=== PATIENT | female | born 1980 | race Caucasian/White ===

== ENCOUNTER 2017-02-03 16:15 | Emergency (ER) | payer OTHER ==
[2017-02-03 16:29] VITALS: BP 112/82; PULSE 100; TEMP 97.5
--- NOTE | 2017-02-03 16:54 | ED ---
General Adult HPI - General Chief complaint: Extremity Problem,Nontraumatic Stated complaint: Shoulder Pain Time Seen by Provider: 02/03/17 16:33 Source: patient, RN notes reviewed Mode of arrival: ambulatory Limitations: no limitations - History of Present Illness Initial comments: Patient is a 36-year-old female who presents emergency room today with chief complaint of pain to the right shoulder. Patient does admit that she was working out a few days ago. Denies any specific injury or trauma. States she was on ibuprofen due to her menstrual cycle. She does admit that she noticed pain yesterday when she went to close a window at the house. She states she had increased pain to the right shoulder. Patient denies any other injury or trauma. She does admit that pain is worse with certain movements. She feels like something is "popping" in this area. Patient denies any other complaints. Patient denies any recent fever, chills, shortness of breath, chest pain, back pain, abdominal pain, nausea or vomiting, dysuria or hematuria, constipation or diarrhea, headaches or visual changes, or any other complaints. - Related Data Home Medications Medication Instructions Recorded Confirmed LORazepam [Ativan] 1 mg PO DAILY PRN 08/20/14 06/23/15 Venlafaxine HCl [Effexor XR] 75 mg PO HS 08/20/14 06/23/15 lamoTRIgine [LaMICtal] 25 mg PO HS 08/20/14 06/23/15 LORazepam [Ativan] 2 mg PO HS 06/23/15 06/23/15 Previous Rx's Medication Instructions Recorded HYDROcodone/APAP 5-325MG [[place] 1 - 2 each PO Q4HR PRN #90 tab 06/24/15 5-325] Allergies Allergy/AdvReac Type Severity Reaction Status Date / Time Sulfa (Sulfonamide Allergy Mild Itching Verified 02/03/17 16:29 Antibiotics) Review of Systems ROS Statement: Those systems with pertinent positive or pertinent negative responses have been documented in the HPI. ROS Other: All systems not noted in ROS Statement are negative. Past Medical History Past Medical History: Hypertension Additional Past Medical History / Comment(s): IBS, high heart rate, high white blood cell count, a mood disorder History of Any Multi-Drug Resistant Organisms: None Reported Past Surgical History: Uterine Ablation Past Anesthesia/Blood Transfusion Reactions: No Reported Reaction Past Psychological History: Anxiety, Depression Smoking Status: Current every day smoker Past Alcohol Use History: Occasional Past Drug Use History: None Reported - Past Family History Mother History Unknown: Yes Family Medical History: Cancer Additional Family Medical History / Comment(s): Breast Cancer General Exam - General Exam Comments Initial Comments: General: The patient is awake and alert, in no distress, and does not appear acutely ill. Neck: The neck is supple, there is no tenderness or JVD. Cardiovascular: There is a regular rate and rhythm. No murmur, rub or gallop is appreciated. Respiratory: Lungs are clear to auscultation, respirations are non-labored, breath sounds are equal. No wheezes, stridor, rales, or rhonchi. Musculoskeletal: Patient has normal appearance of the right shoulder no obvious deformity. She shows good range of motion both flexion, extension, abduction and abduction. Patient sensations are intact. Pulses equal bilaterally 2+. Mild tenderness anteriorly and posteriorly on exam. Strength is 5/5 in all directions. Neurological: A&O x 3. CN II-XII intact, There are no obvious motor or sensory deficits. Coordination appears grossly intact. Speech is normal. Skin: Skin is warm and dry and no rashes or lesions are noted. Psychiatric: Normal mood and affect. Limitations: no limitations Course Vital Signs 02/03/17 16:26 Temperature 97.5 F L Pulse Rate 100 Respiratory 20 Rate Blood Pressure 112/82 O2 Sat by Pulse 98 Oximetry Medical Decision Making - Medical Decision Making Options were discussed with patient about x-ray here the emergency room. She is declined. Strength is 5/5 all directions. Was discussed about the possibility of a rotator cuff injury versus labrum tear versus muscle strain. Patient is advised to follow-up with family doctor or orthopedics for further evaluation. Patient advised use anti-inflammatories for pain. Advised return for any other concerns. Disposition Clinical Impression: Shoulder injury Disposition: HOME SELF-CARE Condition: Good Instructions: Shoulder Sprain (ED), Rotator Cuff Injury (ED) Additional Instructions: Please use ibuprofen as discussed for pain. Please follow-up with the family doctor or orthopedics over the next 2-5 days. Please return to emergency room if any symptoms increase or worsen or for any other concerns. Referrals: Pippa Rosado DO [Primary Care Provider] - 1-2 days Eric Hester MD [STAFF PHYSICIAN] - 1-2 days Time of Disposition: 16:53
[2017-02-03 16:56] VITALS: RESP 16
== END 2017-02-03 17:00 | disposition home or self-care (01) ==
LOC: EC 16:15
DX: S49.91XA Unspecified injury of right shoulder and upper arm, initial encounter (principal); F17.200 Nicotine dependence, unspecified, uncomplicated; Z88.2 Allergy status to sulfonamides; X50.0XXA Overexertion from strenuous movement or load, initial encounter
CPT/HCPCS: 99283

== ENCOUNTER 2017-10-08 12:08 | Emergency (ER) | payer OTHER ==
[2017-10-08 12:21] VITALS: RESP 16
--- NOTE | 2017-10-08 12:32 | ED ---
Extremity Problem HPI - General Chief complaint: Extremity Problem,Nontraumatic Stated complaint: rt arm numbness Time Seen by Provider: 10/08/17 12:31 Source: patient Mode of arrival: ambulatory Limitations: no limitations - History of Present Illness Initial comments: Roseline is a 37 yo female who presents to the emergency department today for evaluation of 2 months of right upper extremity aching pain, numbness and swelling which has occurred intermittently. As well as evaluation of progressively worsening shortness of breath with exertion over the past couple of months as well. Patient reports that she has noticed for the past 2 months that she has what she describes as numbness and tingling in her right arm. She states that she cannot identify any movements or position that worsen the symptoms. She reports the symptoms occur intermittently and last for a varying amount of time. Patient reports that on a few occasions over the past couple of months she is also noted that her hand is very swollen. She reports that on Saturday she felt that her right hand was swollen and she describes it as being twice the size of her left hand. She states that she discussed these symptoms with one of her friends who is "a heart doctor "and he advised her to come to the hospital because she may have a blood clot in her arm. Patient reports that she was being stubborn and was busy so she didn't come to the hospital, however today she decided she had time to come to the hospital. Patient also states that she usually works out for approximately 30 minutes 3 times a week, she states that over the past 2 months she has noticed that she becomes more winded and short of breath when working out. She states that she will become short of breath just walking up the stairs. She also states that she has intermittent chest pain which she now states occurs with most any activity. She states the last injuries. Chest pain was on Saturday while she was walking up a flight of stairs. Has no history of blood clots, no known DVT or PE. She does report that her mother had DVTs and PEs however she is uncertain if she was ever tested for any clotting disorder. The patient is an every day smoker. Patient denies any persistent shortness of breath, she does not feel short of breath at rest. She is not expressing palpitations. Her chest pain occurs only with exertion. - Related Data Home Medications Medication Instructions Recorded Confirmed Venlafaxine HCl [Effexor XR] 75 mg PO HS 08/20/14 10/08/17 Aspirin 650 mg PO ONCE PRN 10/08/17 10/08/17 Ibuprofen [Motrin Ib] 600 mg PO ONCE PRN 10/08/17 10/08/17 LORazepam [Ativan] 0.5 mg PO HS 10/08/17 10/08/17 OXcarbazepine [Trileptal] 300 mg PO HS 10/08/17 10/08/17 Allergies Allergy/AdvReac Type Severity Reaction Status Date / Time Sulfa (Sulfonamide Allergy Mild Rash/Hives Verified 10/08/17 13:37 Antibiotics) Review of Systems ROS Statement: Those systems with pertinent positive or pertinent negative responses have been documented in the HPI. ROS Other: All systems not noted in ROS Statement are negative. Constitutional: Denies: fever, chills Eyes: Denies: eye pain ENT: Denies: throat pain Respiratory: Reports: dyspnea. Denies: cough, wheezes, hemoptysis, stridor Cardiovascular: Reports: chest pain, palpitations, dyspnea on exertion. Denies : orthopnea, edema, syncope, paroxysmal nocturnal dyspnea Endocrine: Denies: fatigue Gastrointestinal: Denies: abdominal pain, nausea, vomiting Genitourinary: Denies: urgency, dysuria Musculoskeletal: Reports: myalgia. Denies: back pain Skin: Denies: rash, lesions, change in color Neurological: Denies: headache, weakness Psychiatric: Denies: anxiety Hematological/Lymphatic: Denies: easy bleeding, easy bruising Past Medical History Past Medical History: Hypertension Additional Past Medical History / Comment(s): IBS, high heart rate, high white blood cell count, a mood disorder History of Any Multi-Drug Resistant Organisms: None Reported Past Surgical History: Uterine Ablation Past Anesthesia/Blood Transfusion Reactions: No Reported Reaction Past Psychological History: Anxiety, Depression Smoking Status: Current every day smoker Past Alcohol Use History: Occasional Past Drug Use History: None Reported - Past Family History Mother History Unknown: Yes Family Medical History: Cancer Additional Family Medical History / Comment(s): Breast Cancer General Exam Limitations: no limitations General appearance: alert, in no apparent distress Head exam: Present: atraumatic, normocephalic Eye exam: Present: normal appearance, PERRL ENT exam: Present: normal exam Neck exam: Present: normal inspection Respiratory exam: Present: normal lung sounds bilaterally. Absent: respiratory distress, wheezes, rales, rhonchi, stridor, chest wall tenderness, accessory muscle use, decreased breath sounds, prolonged expiratory Cardiovascular Exam: Present: regular rate, normal rhythm. Absent: bradycardia , tachycardia, irregular rhythm, systolic murmur, diastolic murmur GI/Abdominal exam: Present: soft. Absent: distended Rectal exam: Present: deferred Extremities exam: Present: normal inspection, full ROM, normal capillary refill. Absent: pedal edema, joint swelling Right General: Present: normal inspection. Absent: laceration, abrasion, nail injury (#), foreign body Shoulder Exam: Present: normal inspection, full ROM Upper Arm exam: Present: normal inspection. Absent: ecchymosis, deformity, erythema Elbow exam: Present: normal inspection, full ROM. Absent: tenderness, swelling Forearm Wrist exam: Present: normal inspection Hand Wrist exam: Present: normal inspection, full ROM. Absent: tenderness, swelling, laceration, erythema Neuro motor exam: Present: wrist extension intact, thumb opposition intact, thumb IP flexion intact, thumb adduction intact, fingers 2-5 abduction intact Neurosensory exam: Present: radial nerve intact, ulnar nerve intact, median nerve intact Vascular: Present: normal capillary refill. Absent: vascular compromise, Pallo , pulse deficit radial art, pulse deficit ulnar art, pulse deficit brachial art Neurological exam: Present: alert, oriented X3 Psychiatric exam: Present: agitated Skin exam: Present: warm, dry, normal color. Absent: rash, cyanosis, diaphoretic, erythema, urticaria, vesicles, petechiae, pallor, mottled, abrasion Course Vital Signs 10/08/17 10/08/17 12:17 14:59 Temperature 97.3 F L 97.4 F L Pulse Rate 90 74 Respiratory 16 16 Rate Blood Pressure 133/77 132/74 O2 Sat by Pulse 98 99 Oximetry Medical Decision Making - Medical Decision Making Patient was seen and evaluated, patient's initial chief complaint was intermittent tingling in her right arm however patient also complaining of exertional dyspnea and chest pain. Patient's right upper extremity within normal physical exam, and strong radial and ulnar pulses. Normal strength. She reports intermittent paresthesias swelling however not experiencing swelling today. Patient's discomfort in her upper extremity is exacerbated by abduction and compression. Advised patient that I suspect that her discomfort is secondary to nerve impingement and that she likely will need follow up with neurology for an EMG. Eyes that we will pursue a full cardiac workup as well as a d-dimer. Patient states that she was told by a heart doctor that she needs an ultrasound of her upper extremity for possible DVT. Advised her that at this time she has no physical exam findings that make me concerned for DVT, and addition I will be obtaining a d-dimer to evaluate for clotting if that is positive we can consider venous Dopplers. Labs are reviewed, troponin and d-dimer are both negative. Lab results were discussed with the patient, advised her that d-dimer was negative and there is no indication for CT pulmonary embolism or further vascular studies. Patient awaiting chest x-ray at this time. I again advised the patient that I suspect that her upper extremity discomfort is secondary to compression and that she needs follow-up with neurology. Chest x-ray with no acute findings. Results were discussed with the patient who is eager for discharge home she is arty removed her gown is is asking for discharge paperwork. I discussed with the patient that her exertional dyspnea may be related to her tobacco abuse and she would benefit from tobacco cessation. Patient's breast understanding of this. Patient was advised to follow-up with her primary care physician for reevaluation or return to the emergency department should she experience chest pain, shortness of breath or any new or concerning symptoms. - Lab Data Result diagrams: 10/08/17 13:07 10/08/17 13:07 Lab Results 10/08/17 10/08/17 10/08/17 Range/Units 13:07 13:07 13:07 WBC 13.9 H (3.8-10.6) k/uL RBC 4.56 (3.80-5.40) m/uL Hgb 12.9 (11.4-16.0) gm/dL Hct 39.0 (34.0-46.0) % MCV 85.6 (80.0-100.0) fL MCH 28.2 (25.0-35.0) pg MCHC 33.0 (31.0-37.0) g/dL RDW 13.8 (11.5-15.5) % Plt Count 354 (150-450) k/uL Neutrophils % 60 % Lymphocytes % 31 % Monocytes % 6 % Eosinophils % 1 % Basophils % 0 % Neutrophils # 8.4 H (1.3-7.7) k/uL Lymphocytes # 4.3 (1.0-4.8) k/uL Monocytes # 0.8 (0-1.0) k/uL Eosinophils # 0.2 (0-0.7) k/uL Basophils # 0.1 (0-0.2) k/uL PT 9.4 (9.0-12.0) sec INR 0.9 (<1.2) APTT 23.5 (22.0-30.0) sec D-Dimer 0.42 (<0.60) mg/L FEU Sodium 141 (137-145) mmol/L Potassium 4.3 (3.5-5.1) mmol/L Chloride 103 (98-107) mmol/L Carbon Dioxide 28 (22-30) mmol/L Anion Gap 10 mmol/L BUN 9 (7-17) mg/dL Creatinine 0.70 (0.52-1.04) mg/dL Est GFR (CKD-EPI)AfAm >90 (>60 ml/min/1.73 sqM) Est GFR (CKD-EPI)NonAf >90 (>60 ml/min/1.73 sqM) Glucose 72 L (74-99) mg/dL Calcium 10.2 (8.4-10.2) mg/dL Troponin I (0.000-0.034) ng/mL NT-Pro-B Natriuret Pep pg/mL Urine Color Urine Appearance (Clear) Urine pH (5.0-8.0) Ur Specific [place] (1.001-1.035) Urine Protein (Negative) Urine Glucose (UA) (Negative) Urine Ketones (Negative) Urine Blood (Negative) Urine Nitrite (Negative) Urine Bilirubin (Negative) Urine Urobilinogen (<2.0) mg/dL Ur Leukocyte Esterase (Negative) Urine RBC (0-5) /hpf Urine WBC (0-5) /hpf Urine Bacteria (None) /hpf Urine Mucus (None) /hpf Urine HCG, Qual (Not Detectd) 10/08/17 10/08/17 10/08/17 Range/Units 13:07 13:07 13:07 WBC (3.8-10.6) k/uL RBC (3.80-5.40) m/uL Hgb (11.4-16.0) gm/dL Hct (34.0-46.0) % MCV (80.0-100.0) fL MCH (25.0-35.0) pg MCHC (31.0-37.0) g/dL RDW (11.5-15.5) % Plt Count (150-450) k/uL Neutrophils % % Lymphocytes % % Monocytes % % Eosinophils % % Basophils % % Neutrophils # (1.3-7.7) k/uL Lymphocytes # (1.0-4.8) k/uL Monocytes # (0-1.0) k/uL Eosinophils # (0-0.7) k/uL Basophils # (0-0.2) k/uL PT (9.0-12.0) sec INR (<1.2) APTT (22.0-30.0) sec D-Dimer (<0.60) mg/L FEU Sodium (137-145) mmol/L Potassium (3.5-5.1) mmol/L Chloride (98-107) mmol/L Carbon Dioxide (22-30) mmol/L Anion Gap mmol/L BUN (7-17) mg/dL Creatinine (0.52-1.04) mg/dL Est GFR (CKD-EPI)AfAm (>60 ml/min/1.73 sqM) Est GFR (CKD-EPI)NonAf (>60 ml/min/1.73 sqM) Glucose (74-99) mg/dL Calcium (8.4-10.2) mg/dL Troponin I <0.012 (0.000-0.034) ng/mL NT-Pro-B Natriuret Pep 49 pg/mL Urine Color Urine Appearance (Clear) Urine pH (5.0-8.0) Ur Specific [place] (1.001-1.035) Urine Protein (Negative) Urine Glucose (UA) (Negative) Urine Ketones (Negative) Urine Blood (Negative) Urine Nitrite (Negative) Urine Bilirubin (Negative) Urine Urobilinogen (<2.0) mg/dL Ur Leukocyte Esterase (Negative) Urine RBC (0-5) /hpf Urine WBC (0-5) /hpf Urine Bacteria (None) /hpf Urine Mucus (None) /hpf Urine HCG, Qual Not Detected (Not Detectd) 04/03/18 Range/Units 13:07 WBC (3.8-10.6) k/uL RBC (3.80-5.40) m/uL Hgb (11.4-16.0) gm/dL Hct (34.0-46.0) % MCV (80.0-100.0) fL MCH (25.0-35.0) pg MCHC (31.0-37.0) g/dL RDW (11.5-15.5) % Plt Count (150-450) k/uL Neutrophils % % Lymphocytes % % Monocytes % % Eosinophils % % Basophils % % Neutrophils # (1.3-7.7) k/uL Lymphocytes # (1.0-4.8) k/uL Monocytes # (0-1.0) k/uL Eosinophils # (0-0.7) k/uL Basophils # (0-0.2) k/uL PT (9.0-12.0) sec INR (<1.2) APTT (22.0-30.0) sec D-Dimer (<0.60) mg/L FEU Sodium (137-145) mmol/L Potassium (3.5-5.1) mmol/L Chloride (98-107) mmol/L Carbon Dioxide (22-30) mmol/L Anion Gap mmol/L BUN (7-17) mg/dL Creatinine (0.52-1.04) mg/dL Est GFR (CKD-EPI)AfAm (>60 ml/min/1.73 sqM) Est GFR (CKD-EPI)NonAf (>60 ml/min/1.73 sqM) Glucose (74-99) mg/dL Calcium (8.4-10.2) mg/dL Troponin I (0.000-0.034) ng/mL NT-Pro-B Natriuret Pep pg/mL Urine Color Red Urine Appearance Clear (Clear) Urine pH 7.0 (5.0-8.0) Ur Specific [place] 1.006 (1.001-1.035) Urine Protein 2+ H (Negative) Urine Glucose (UA) Negative (Negative) Urine Ketones Negative (Negative) Urine Blood Large H (Negative) Urine Nitrite Negative (Negative) Urine Bilirubin Negative (Negative) Urine Urobilinogen <2.0 (<2.0) mg/dL Ur Leukocyte Esterase Moderate H (Negative) Urine RBC >182 H (0-5) /hpf Urine WBC 81 H (0-5) /hpf Urine Bacteria Rare H (None) /hpf Urine Mucus Rare H (None) /hpf Urine HCG, Qual (Not Detectd) Disposition Clinical Impression: Paresthesia of right arm, Shortness of breath, Tobacco abuse Disposition: HOME SELF-CARE Condition: Good Instructions: How to Stop Smoking (ED), Paresthesia (ED) Referrals: Pippa Rosado DO [Primary Care Provider] - 1-2 days Yanci Gimenez MD [STAFF PHYSICIAN] - 1-2 days Time of Disposition: 14:44
[2017-10-08 13:21] LABS: Basophils # (A) 0.1 k/uL (0-0.2); Basophils % (A) 0 %; Eosinophils # (A) 0.2 k/uL (0-0.7); Eosinophils % (A) 1 %; HGB 12.9 gm/dL (11.4-16.0); Lymphocytes # (A) 4.3 k/uL (1.0-4.8); Lymphocytes % (A) 31 %; MCH 28.2 pg (25.0-35.0); MCV 85.6 fL (80.0-100.0); Mean Platelet Volume 6.5; Monocytes # (A) 0.8 k/uL (0-1.0); Monocytes % (A) 6 %; Neutrophils # (A) 8.4 k/uL (1.3-7.7); Neutrophils % (A) 60 %; Platelet Count 354 k/uL (150-450); RBC 4.56 m/uL (3.80-5.40); RDW 13.8 % (11.5-15.5); WBC 13.9 k/uL (3.8-10.6)
[2017-10-08 13:32] LABS: Anion Gap 10 mmol/L; Blood Urea Nitrogen 9 mg/dL (7-17); Calcium 10.2 mg/dL (8.4-10.2); Carbon Dioxide 28 mmol/L (22-30); Chloride 103 mmol/L (98-107); Glucose 72 mg/dL (74-99); Potassium 4.3 mmol/L (3.5-5.1); Sodium 141 mmol/L (137-145)
[2017-10-08 13:38] LABS: Appearance,Urine Clear (Clear); Bacteria,Urine Rare /hpf; Bilirubin,Urine Negative (Negative); Blood,Urine Large (Negative); Color,Urine Red; Glucose,Urine (UA) Negative (Negative); Ketones,Urine Negative (Negative); Leukocyte Esterase,Urine Moderate (Negative); Mucus,Urine Rare /hpf; Nitrite,Urine Negative (Negative); Protein,Urine 2+ (Negative); RBC,Urine >182 /hpf (0-5); Specific Gravity,Urine 1.006 (1.001-1.035); Urobilinogen,Urine <2.0 mg/dL (<2.0); WBC,Urine 81 /hpf (0-5)
[2017-10-08 13:39] LABS: D-Dimer 0.42 mg/L FEU (<0.60); INR 0.9 (<1.2); Partial Thromboplastin Time 23.5 sec (22.0-30.0); Prothrombin Time 9.4 sec (9.0-12.0)
--- NOTE | 2017-10-08 14:33 | XR ---
EXAMINATION TYPE: XR chest 1V DATE OF EXAM: 10/08/2017 COMPARISON: NONE HISTORY: Shortness of breath TECHNIQUE: Single frontal view of the chest is obtained. FINDINGS: There is no focal air space opacity, pleural effusion, or pneumothorax seen. The cardiac silhouette size is within normal limits. The osseous structures are intact. Positioning results in a somewhat apical lordotic view. No overt failure. IMPRESSION: No acute process.
[2017-10-08 15:00] VITALS: BP 132/74; PULSE 74; TEMP 97.4
== END 2017-10-08 15:09 | disposition home or self-care (01) ==
LOC: EC 12:08
DX: R20.2 Paresthesia of skin (principal); R06.02 Shortness of breath; I10 Essential (primary) hypertension; F32.9 Major depressive disorder, single episode, unspecified; F41.9 Anxiety disorder, unspecified; F17.200 Nicotine dependence, unspecified, uncomplicated; Z88.2 Allergy status to sulfonamides; Z79.899 Other long term (current) drug therapy
CPT/HCPCS: 36415; 71045; 80048; 81001; 81025; 83880; 84484; 85025; 85379; 85610; 85730; 93005; 99284

== ENCOUNTER → 2018-01-20 | Outpatient (CLI) | payer OTHER ==
--- NOTE | 2018-01-20 10:36 | US ---
EXAMINATION TYPE: US abdomen complete DATE OF EXAM: 01/20/2018 COMPARISON: None CLINICAL HISTORY: 37-year-old female R16.1 SPLENOMEGALY. High WBC, diarrhea and intermittent left fla nk pain x 1 year TECHNIQUE: Multiple sonographic images of the abdomen are obtained. FINDINGS: EXAM MEASUREMENTS: Liver Length: 14.8 cm Gallbladder Wall: 0.2 cm CBD: 0.3 cm Spleen: 9.1 cm Right Kidney: 9.8 x 4.7 x 4.5 cm Left Kidney: 10.6 x 5.3 x 4.5 cm Pancreas: visualized portions wnl, limited by overlying midline bowel gas Liver: wnl Gallbladder: 0.3cm hyperechoic non shadowing focus along posterior wall Evidence for sonographic Nice's sign: no CBD: visualized portions wnl Spleen: wnl Right Kidney: wnl Left Kidney: wnl Upper IVC: wnl Abd Aorta: visualized portions wnl, limited by overlying midline bowel gas IMPRESSION: 1. Either a 3 mm nonshadowing gallbladder calculus or a tiny incidental 3 mm gallbladder wall polyp. 2. Otherwise, no specific abnormality seen. Spleen is normal size.
== END | disposition home or self-care (01) ==
LOC: RADUSWWP 08:22
PROVIDERS: ATTEND Internal Medicine Hematology & Oncology
DX: R16.1 Splenomegaly, not elsewhere classified (principal); Z88.2 Allergy status to sulfonamides
CPT/HCPCS: 76700

== ENCOUNTER → 2019-07-22 | Outpatient (CLI) | payer OTHER ==
--- NOTE | 2019-07-23 14:08 | MM ---
Reason for exam: screening (asymptomatic). Last mammogram was performed 9 years and 1 month ago. History: Family history of breast cancer in sister at age 56 and breast cancer in mother at age 70. Took hormonal contraceptives for 5 years. Physical Findings: A clinical breast exam by your physician is recommended on an annual basis and results should be correlated with mammographic findings. MG 3D Screening Mammo W/Cad Bilateral CC and MLO view(s) were taken. Prior study comparison: June 09, 2010, bilateral diagnostic digital mammog. The breast tissue is heterogeneously dense. This may lower the sensitivity of mammography. No suspicious abnormality in the left breast. 7mm right lateral asymmetry 6.5-7.0cm from nipple. ASSESSMENT: Incomplete: need additional imaging evaluation, BI-RAD 0 RECOMMENDATION: Special view mammogram of the right breast. If lesion persists on supplemental views, image directed ultrasound is recommended. [facility] will attempt to contact patient to return for supplemental views and ultrasound if indicated.
== END | disposition home or self-care (01) ==
LOC: RADMAMWWP 09:41
PROVIDERS: ATTEND Family Medicine
DX: Z12.31 Encounter for screening mammogram for malignant neoplasm of breast (principal); Z80.3 Family history of malignant neoplasm of breast
CPT/HCPCS: 77063; 77067

== ENCOUNTER → 2019-08-04 | Outpatient (CLI) | payer OTHER ==
--- NOTE | 2019-08-04 11:43 | MM ---
Reason for exam: additional evaluation requested from abnormal screening. Last mammogram was performed less than 1 month ago. History: Family history of breast cancer in sister at age 56 and breast cancer in mother at age 67. Took hormonal contraceptives for 5 years. Physical Findings: Nurse did not find any significant physical abnormalities on exam. MG 3D Work Up W/Cad RT Spot compression CC and LM view(s) were taken of the right breast. Prior study comparison: July 22, 2019, bilateral MG 3d screening mammo w/cad. June 09, 2010, bilateral diagnostic digital mammog. The breast tissue is heterogeneously dense. This may lower the sensitivity of mammography. Right upper outer quadrant focal asymmetry 6.5cm from nipple measures 6mm and improves but does not resolve on additional views. These results were verbally communicated with the patient and result sheet given to the patient on 08/04/19. ASSESSMENT: Incomplete: need additional imaging evaluation, BI-RAD 0 RECOMMENDATION: Ultrasound of the right breast. (upper outer quadrant)
--- NOTE | 2019-08-04 11:46 | USB ---
Reason for exam: additional evaluation requested from abnormal screening. History: Family history of breast cancer in sister at age 56 and breast cancer in mother at age 67. Took hormonal contraceptives for 5 years. US Breast Workup Limited RT Right limited breast ultrasound including focal area of concern, retroareolar and axilla demonstrates a 0.5 x 0.5 x 0.5cm hypoechoic lesion at 9 o'clock and a 0.9 x 0.6 x 1.0cm hypoechoic lesion at 10 o'clock, correlates with mammogram. These results were verbally communicated with the patient and result sheet given to the patient on 08/04/19. ASSESSMENT: Suspicious, BI-RAD 4 RECOMMENDATION: Ultrasound core biopsy of the right breast. (x 2) Called Dr. Rosado's office with mammographic findings and has scheduled an appointment for the patient for 08/21/19 at 9:[address] Bowden. Biopsy scheduled for 08/21/19 at 11:30. PRELIMINARY REPORT CALLED AND FAXED TO DR. BOWDEN ON 08/04/19.
== END ==
LOC: RADMAMWWP 09:07
PROVIDERS: ATTEND Family Medicine
DX: R92.8 Other abnormal and inconclusive findings on diagnostic imaging of breast (principal)
CPT/HCPCS: 77061; 77065

== ENCOUNTER → 2019-08-21 | Day surgery (SDC) | payer OTHER ==
[2019-08-21 12:39] VITALS: RESP 18; TEMP 98
--- NOTE | 2019-08-21 13:52 | USB ---
EXAMINATION TYPE: US biopsy breast add'l VAD RT, US biopsy breast VAD RT, MG diagnostic mammo RT wo CAD DATE OF EXAM: 08/21/2019 CLINICAL HISTORY: R92.8, ABN MAMM. TECHNIQUE: 2 site ultrasound guided core biopsy of right breast. COMPARISON: Right breast ultrasound dated 08/04/2019 FINDINGS: The procedure of ultrasound guided core biopsy was explained to the patient. Benefits, alternatives, and risks were discussed. An informed consent was then obtained. Preprocedural timeout was performed. Site A: The patient was placed in supine positioning for imaging and for the procedure. The overlying skin was prepped and draped in usual sterile fashion. 10 cc of 1% lidocaine was used as anesthetic into the skin and subcutaneous tissue up to a 1.0 cm mass at the 10:00 position in the right breast. Under ultrasound guidance, a 12-gauge vacuum assisted biopsy gun device was used to obtain 5 core samples. Following this, a coil-shaped biopsy marker was left in the mass. Site B: The patient was placed in supine positioning for imaging and for the procedure. The overlying skin was prepped and draped in usual sterile fashion. 10 cc of 1% lidocaine was used as anesthetic into the skin and subcutaneous tissue up to a 0.5 cm mass at the 9:00 position in the right breast. Under ultrasound guidance, a 12-gauge vacuum assisted biopsy gun device was used to obtain 3 core samples. Following this, a a ribbon-shaped biopsy marker was left in the mass. Postprocedural mammogram demonstrates appropriate biopsy marker placement. The patient tolerated the procedure well without any immediate complication. The patient was kept in the radiology department for short stay after the procedure and then discharged home in stable condition. IMPRESSION: Successful, uncomplicated 2 site ultrasound guided core biopsy of right breast masses at the 10:00 and 9:00 positions, full pathology results to follow. Pathology Results: Benign A. RIGHT BREAST, 10:00, ULTRASOUND GUIDED CORE BIOPSY: Fibroadenoma. B. RIGHT BREAST, 9:00, ULTRASOUND GUIDED CORE BIOPSY: Fibroadenoma. Background proliferative fibrocystic changes including nodular adenosis with calcifications. Recommendation Follow up mammogram of the right breast in 6 months. [facility]
[2019-08-21 21:06] VITALS: BP 117/60; PULSE 70
== END ==
LOC: RADUSWWP 11:33
PROVIDERS: ATTEND Surgery
DX: D24.1 Benign neoplasm of right breast (principal); N60.11 Diffuse cystic mastopathy of right breast; N60.21 Fibroadenosis of right breast
CPT/HCPCS: 88305; 77065; 19083; 19084; A4648; J2001

== ENCOUNTER → 2019-08-21 | Outpatient (CLI) | payer OTHER ==
[2019-08-21 09:14] VITALS: BP 116/81; PULSE 106; RESP 18; TEMP 97.6
--- NOTE | 2019-08-21 09:52 | P.GSHP ---
History of Present Illness H&P Date: 08/21/19 Chief Complaint: abnormal mammogram right breast Roseline is a 38-year-old white female who presents for breast evaluation. She is seen in consultation for Dr. Cortes. [place] [address] on this film in the right breast she was noted to have a 7 mm lateral asymmetry approximately 7 cm from the nipple. This resulted in additional views being performed on 12 820. This revealed a persistent right upper outer quadrant focal asymmetry 6.5 cm from the nipple. An ultrasound was performed in an ultrasound to lesions were noted in 0.5 cm lesion at 9:00 and is 0.9 cm lesion at 10:00 correlating with a mammographic change. The patient herself states t hat she has felt some increased nodularity in the right breast for at least 2 years. She states that she also has discomfort with this area of nodularity in the area of nodularity has increased in size. Of importance is the fact that her sister 57 was recently diagnosed with breast cancer. Her mother in 2008 of breast cancer at the age of 70. The pain in her breast does not spread anywhere, she also has pain in the right axilla. The area of nodularity and pain was worse right before her periods, but now the pain is continuous. Family History: sister: invasive lobular carcinoma mother: cancer ? type from this maternal aunt: breast cancer Hormonal history: menarche: 12 , 1 [place], first born at 15, brest fed: no periods regular BCP: 2 years hormones: none Past Surgical History: 1. uterine ablation 2. colonoscopy; IBS, colitis, diverticulitis Medical History: 1. Tachycardia 2. High white blood cell count questionable etiology Social History: smoke: 1/2 PPD/22 years alcohol: none, stopped 3 years ago drugs: none - Constitutional Constitutional: Reports sweats - EENT Comment: wears contacts Eyes: denies blurred vision, denies pain Ears: right: decreased hearing (right ear pain for 6 months), deny: tinnitus Ears, nose, mouth and throat: Reports sore throat - Breasts Comment: no nipple discharge or skin changes Breasts: bilateral: as per HPI - Cardiovascular Comment: tachycardia chest pain - Respiratory Comment: smoker - Gastrointestinal Comment: Irritable bowel syndrome, diverticulitis - Genitourinary (Female) Genitourinary: Denies dysuria, Denies hematuria - Menstruation Menstruation: Reports period normal - Musculoskeletal Musculoskeletal: Denies myalgias - Integumentary Comment: rash on back Integumentary: Reports rash - Neurological Neurological: Reports numbness, Denies weakness - Psychiatric Psychiatric: Denies anxiety, Denies depression - Endocrine Endocrine: Reports fatigue, Reports weight change - Hematologic/Lymphatic Comment: none, motrin as needed has not taken for a week - Allergic/Immunologic Allergic/Immunologic: Reports as per HPI Past Medical History Past Medical History: Hypertension Additional Past Medical History / Comment(s): IBS, high heart rate, high white blood cell count, diverticulitis History of Any Multi-Drug Resistant Organisms: None Reported Past Surgical History: Uterine Ablation Past Anesthesia/Blood Transfusion Reactions: No Reported Reaction Past Psychological History: Anxiety, Depression Smoking Status: Current every day smoker Past Alcohol Use History: None Reported Past Drug Use History: None Reported - Past Family History Mother History Unknown: Yes Family Medical History: Cancer Additional Family Medical History / Comment(s): Breast Cancer Medications and Allergies Home Medications Medication Instructions Recorded Confirmed Type Venlafaxine HCl [Effexor XR] 75 mg PO HS 08/20/14 08/12/19 History Ibuprofen [Motrin Ib] 600 mg PO ONCE PRN 10/08/17 08/12/19 History LORazepam [Ativan] 0.5 mg PO HS 10/08/17 08/12/19 History Allergies Allergy/AdvReac Type Severity Reaction Status Date / Time Sulfa (Sulfonamide Allergy Mild Rash/Hives Verified 08/21/19 09:14 Antibiotics) Surgical - Exam Vital Signs Temp Pulse Resp BP Pulse Ox 97.6 F 106 H 18 116/81 100 08/21/19 09:06 08/21/19 09:06 08/21/19 09:06 08/21/19 09:06 08/21/19 09:06 BMI 27.3 - General well developed, well nourished, no distress - Eyes normal ocular movement - ENT no hearing loss, no congestion - Neck trachea midline - Respiratory normal expansion, normal respiratory effort, clear to auscultation - Cardiovascular Rhythm: regular Heart Sounds: normal: S1, S2 - Abdomen Abdomen: soft, non tender, no guarding, no rigid, no rebound - Integumentary normal turgor - Neurologic no disoriented, no combative - Musculoskeletal normal gait, normal posture - Psychiatric oriented to time, oriented to person, oriented to place, speech is normal, memory intact breast exam: BRA 36B, ptosis grade 1 inspection: no skin changes of concern, no nipple inversion Palpation: Right breast: Multi-positional exam fibrocystic changes, increased fullness 12:00 as well as 9 and 10 o'clock position 9 and 10 o'clock position correlated with radiographic changes Right axilla: Tender with no adenopathy of concern Left breast: Multi-positional exam fibrocystic changes Left axilla: No adenopathy of concern Results Mammogram and ultrasound reviewed with radiologist Dr. Parker Assessment and Plan Assessment: Impression: 1. Abnormal mammogram/ultrasound right breast from July 2019 2. Palpable change right breast at 12:00 as well as 9 and 10:00/that at 12:00 does not seem to correspond radiographic abnormality 3. Fibrocystic breast changes 4. Tachycardia of unexplained etiology 5. Leukocytosis of unexplained etiology Plan: 1. Ultrasound core biopsy of 9 and 10 o'clock position right breast 2. Ultrasound reevaluation 12:00 area of the right breast 3. CBC 4. Follow up after ultrasound biopsy done Risk and benefits of ultrasound core biopsy discussed patient understands and wishes to proceed CC: Dr. Murillo encounter 45 minutes > > 50% of time in planning and counselling Time with Patient: Greater than 30
[2019-08-21 11:12] LABS: HCT 40.9 % (34.0-46.0); HGB 13.5 gm/dL (11.4-16.0); MCH 29.2 pg (25.0-35.0); MCHC 32.9 g/dL (31.0-37.0); MCV 88.7 fL (80.0-100.0); Mean Platelet Volume 6.7; Platelet Count 358 k/uL (150-450); RBC 4.61 m/uL (3.80-5.40); RDW 13.7 % (11.5-15.5); WBC 14.2 k/uL (3.8-10.6)
== END ==
LOC: WWCWWP 08:57
PROVIDERS: ATTEND Surgery
DX: D72.829 Elevated white blood cell count, unspecified (principal)
CPT/HCPCS: 36415; 85027

== ENCOUNTER 2019-09-09 21:16 | Emergency (ER) | payer OTHER ==
[2019-09-09] MEDS ORDERED: MORPHINE SULFATE 4 MG/ML SYRINGE IVP STA (21:39)
[2019-09-09] MEDS ORDERED: ONDANSETRON 4 MG/2 ML VIAL IVP STA (21:42)
[2019-09-09] MEDS ORDERED: MORPHINE SULFATE 4 MG/ML SYRINGE IV STA (21:42)
[2019-09-09] MEDS ORDERED: SODIUM CHLORIDE 0.9% 1,000 ML IV STA ×2 (21:42→23:02)
[2019-09-09] MEDS ORDERED: PANTOPRAZOLE 40 MG/10 ML VIAL IVP STA (21:42)
--- NOTE | 2019-09-09 22:04 | ED ---
Abdominal Pain HPI - General Chief Complaint: Abdominal Pain Stated Complaint: Abd Pain Time Seen by Provider: 09/09/19 21:26 Source: patient, RN notes reviewed, old records reviewed Mode of arrival: ambulatory Limitations: no limitations - History of Present Illness Initial Comments: This is a 38-year-old female DF for evaluation of abdominal pain patient states she has history of diverticulitis with prior colonoscopy as well as maybe history of irritable bowel syndrome or disease. She takes no daily medications denies any fevers mild nausea no vomiting symptoms started today while at work she was not doing anything specific no recent change in diet or appetite. No blood in her vomit no blood in her stools usually has the loose stools she's a ctually felt maybe a little constipated lately MD Complaint: abdominal pain -: hour(s) Location: LUQ Radiation: LUQ Migration to: LUQ Severity: severe Severity scale (1-10): 10 Quality: stabbing, aching Consistency: constant Improves With: nothing Worsens With: nothing Associated Symptoms: nausea - Related Data Home Medications Medication Instructions Recorded Confirmed Venlafaxine HCl [Effexor XR] 75 mg PO HS 08/20/14 08/27/19 Ibuprofen [Motrin Ib] 600 mg PO ONCE PRN 10/08/17 08/27/19 LORazepam [Ativan] 0.5 mg PO HS 10/08/17 08/27/19 Allergies Allergy/AdvReac Type Severity Reaction Status Date / Time Sulfa (Sulfonamide Allergy Mild Rash/Hives Verified 08/27/19 10:20 Antibiotics) Review of Systems ROS Statement: Those systems with pertinent positive or pertinent negative responses have been documented in the HPI. ROS Other: All systems not noted in ROS Statement are negative. Past Medical History Past Medical History: Hypertension Additional Past Medical History / Comment(s): IBS, high heart rate, high white blood cell count, diverticulitis History of Any Multi-Drug Resistant Organisms: None Reported Past Surgical History: Uterine Ablation Past Anesthesia/Blood Transfusion Reactions: No Reported Reaction Past Psychological History: Anxiety, Depression Smoking Status: Current every day smoker Past Alcohol Use History: None Reported Past Drug Use History: None Reported - Past Family History Mother History Unknown: Yes Family Medical History: Cancer Additional Family Medical History / Comment(s): Breast Cancer General Exam Limitations: no limitations General appearance: alert, in no apparent distress Head exam: Present: atraumatic, normocephalic, normal inspection Eye exam: Present: normal appearance, PERRL, EOMI. Absent: scleral icterus, conjunctival injection, periorbital swelling ENT exam: Present: normal exam, mucous membranes moist Neck exam: Present: normal inspection. Absent: tenderness, meningismus, lymphadenopathy Respiratory exam: Present: normal lung sounds bilaterally. Absent: respiratory distress, wheezes, rales, rhonchi, stridor Cardiovascular Exam: Present: normal rhythm, tachycardia, normal heart sounds. Absent: systolic murmur, diastolic murmur, rubs, gallop, clicks GI/Abdominal exam: Present: soft, normal bowel sounds. Absent: distended, tenderness, guarding, rebound, rigid Extremities exam: Present: normal inspection, full ROM, normal capillary refill. Absent: tenderness, pedal edema, joint swelling, calf tenderness Back exam: Present: normal inspection Neurological exam: Present: alert, oriented X3, CN II-XII intact Psychiatric exam: Present: normal affect, normal mood Skin exam: Present: warm, dry, intact, normal color. Absent: rash Course Vital Signs 09/09/19 21:18 Temperature 98.1 F Pulse Rate 110 H Respiratory 20 Rate Blood Pressure 126/81 - Reevaluation(s) Reevaluation #1: 09/10/19 00:08 Medical records reviewed Reevaluation #2: 09/10/19 00:08 Patient is requesting strong shoulder pain medications by name Reevaluation #3: 09/10/19 00:08 Patient has pain control and reevaluation no abdominal tenderness Reevaluation #4: 09/10/19 00:08 Spoke patient regarding findings and results questions answered, patient's okay for discharge Medical Decision Making - Medical Decision Making 38 female nonspecific abdominal pain CT labwork otherwise negative lipase mildly elevated secondary to nausea and retching. Patient can be discharged home - Lab Data Result diagrams: 09/09/19 21:57 09/09/19 21:57 Lab Results 09/09/19 09/09/19 09/09/19 Range/Units 21:57 21:57 21:57 WBC 16.7 H (3.8-10.6) k/uL RBC 4.66 (3.80-5.40) m/uL Hgb 13.3 (11.4-16.0) gm/dL Hct 40.9 (34.0-46.0) % MCV 87.8 (80.0-100.0) fL MCH 28.5 (25.0-35.0) pg MCHC 32.5 (31.0-37.0) g/dL RDW 13.5 (11.5-15.5) % Plt Count 402 (150-450) k/uL Neutrophils % 65 % Lymphocytes % 25 % Monocytes % 6 % Eosinophils % 2 % Basophils % 0 % Neutrophils # 10.9 H (1.3-7.7) k/uL Lymphocytes # 4.1 (1.0-4.8) k/uL Monocytes # 1.0 (0-1.0) k/uL Eosinophils # 0.2 (0-0.7) k/uL Basophils # 0.1 (0-0.2) k/uL Sodium 136 L (137-145) mmol/L Potassium 4.5 (3.5-5.1) mmol/L Chloride 105 (98-107) mmol/L Carbon Dioxide 21 L (22-30) mmol/L Anion Gap 10 mmol/L BUN 13 (7-17) mg/dL Creatinine 0.87 (0.52-1.04) mg/dL Est GFR (CKD-EPI)AfAm >90 (>60 ml/min/1.73 sqM) Est GFR (CKD-EPI)NonAf 84 (>60 ml/min/1.73 sqM) Glucose 96 (74-99) mg/dL Plasma Lactic Acid [place] (0.7-2.0) mmol/L Calcium 10.0 (8.4-10.2) mg/dL Total Bilirubin <0.1 L (0.2-1.3) mg/dL AST 21 (14-36) U/L ALT 19 (4-34) U/L Alkaline Phosphatase 70 (38-126) U/L Total Protein 7.1 (6.3-8.2) g/dL Albumin 4.4 (3.5-5.0) g/dL Amylase 71 (30-110) U/L Lipase 370 H (23-300) U/L Urine Color Yellow Urine Appearance Cloudy H (Clear) Urine pH 5.5 (5.0-8.0) Ur Specific [place] 1.021 (1.001-1.035) Urine Protein Negative (Negative) Urine Glucose (UA) Negative (Negative) Urine Ketones Negative (Negative) Urine Blood Negative (Negative) Urine Nitrite Negative (Negative) Urine Bilirubin Negative (Negative) Urine Urobilinogen <2.0 (<2.0) mg/dL Ur Leukocyte Esterase Moderate H (Negative) Urine RBC 5 (0-5) /hpf Urine WBC 7 H (0-5) /hpf Ur Squamous Epith Cells 8 H (0-4) /hpf Urine Bacteria Rare H (None) /hpf Urine Mucus Rare H (None) /hpf 09/09/19 Range/Units 21:57 WBC (3.8-10.6) k/uL RBC (3.80-5.40) m/uL Hgb (11.4-16.0) gm/dL Hct (34.0-46.0) % MCV (80.0-100.0) fL MCH (25.0-35.0) pg MCHC (31.0-37.0) g/dL RDW (11.5-15.5) % Plt Count (150-450) k/uL Neutrophils % % Lymphocytes % % Monocytes % % Eosinophils % % Basophils % % Neutrophils # (1.3-7.7) k/uL Lymphocytes # (1.0-4.8) k/uL Monocytes # (0-1.0) k/uL Eosinophils # (0-0.7) k/uL Basophils # (0-0.2) k/uL Sodium (137-145) mmol/L Potassium (3.5-5.1) mmol/L Chloride (98-107) mmol/L Carbon Dioxide (22-30) mmol/L Anion Gap mmol/L BUN (7-17) mg/dL Creatinine (0.52-1.04) mg/dL Est GFR (CKD-EPI)AfAm (>60 ml/min/1.73 sqM) Est GFR (CKD-EPI)NonAf (>60 ml/min/1.73 sqM) Glucose (74-99) mg/dL Plasma Lactic Acid [place] 1.6 (0.7-2.0) mmol/L Calcium (8.4-10.2) mg/dL Total Bilirubin (0.2-1.3) mg/dL AST (14-36) U/L ALT (4-34) U/L Alkaline Phosphatase (38-126) U/L Total Protein (6.3-8.2) g/dL Albumin (3.5-5.0) g/dL Amylase (30-110) U/L Lipase (23-300) U/L Urine Color Urine Appearance (Clear) Urine pH (5.0-8.0) Ur Specific [place] (1.001-1.035) Urine Protein (Negative) Urine Glucose (UA) (Negative) Urine Ketones (Negative) Urine Blood (Negative) Urine Nitrite (Negative) Urine Bilirubin (Negative) Urine Urobilinogen (<2.0) mg/dL Ur Leukocyte Esterase (Negative) Urine RBC (0-5) /hpf Urine WBC (0-5) /hpf Ur Squamous Epith Cells (0-4) /hpf Urine Bacteria (None) /hpf Urine Mucus (None) /hpf - Radiology Data Radiology results: report reviewed (US of GALLBLADDER CT OF abd and pelvis NE GATIVE FOR ACUTE disease), image reviewed Disposition Clinical Impression: Abdominal pain, Pancreatitis Disposition: HOME SELF-CARE Condition: Good Instructions (If sedation given, give patient instructions): Abdominal Pain (ED) Is patient prescribed a controlled substance at d/c from ED?: No Referrals: Don Nuñez Jr, DO [Primary Care Provider] - 1-2 days
--- NOTE | 2019-09-09 22:33 | CT ---
EXAMINATION TYPE: CT abdomen pelvis w con DATE OF EXAM: 09/09/2019 COMPARISON: 08/20/2014 HISTORY: abdominal pain, hx of diverticulitis CT DLP: 845.4 mGycm Automated exposure control for dose reduction was used. CONTRAST: Performed with IV Contrast, patient injected with 100 mL of Isovue 300. Images were obtained from the diaphragm to the floor the pelvis with IV contrast. Lung bases are clear. There is no pleural effusion. Heart size is normal. There is no pericardial eff usion. Liver spleen stomach pancreas gallbladder appears normal. Bile ducts are not dilated. There is no adrenal mass. Kidneys show satisfactory contrast opacification. There is no hydronephrosi s. Ureters are not dilated. Bladder distends smoothly. There is no inguinal hernia. Uterus is antever dhara. There is no free fluid in the pelvis. Appendix is posterior and appears normal. There are multip le diverticula in the mid sigmoid colon. There is no sign of diverticulitis. There are diverticula sc attered in the remainder of the colon. There is no mesenteric edema. There is no ascites or free air. There is no bowel obstruction. The lum bar spine is intact. Bony pelvis is intact. IMPRESSION: Normal appendix. Colonic diverticulosis without diverticulitis. No adverse change compared to old exa m.
[2019-09-09 22:35] LABS: Basophils # (A) 0.1 k/uL (0-0.2); Basophils % (A) 0 %; Eosinophils # (A) 0.2 k/uL (0-0.7); Eosinophils % (A) 2 %; HCT 40.9 % (34.0-46.0); HGB 13.3 gm/dL (11.4-16.0); Lymphocytes # (A) 4.1 k/uL (1.0-4.8); Lymphocytes % (A) 25 %; MCH 28.5 pg (25.0-35.0); MCHC 32.5 g/dL (31.0-37.0); MCV 87.8 fL (80.0-100.0); Mean Platelet Volume 7.1; Monocytes % (A) 6 %; Neutrophils # (A) 10.9 k/uL (1.3-7.7); Neutrophils % (A) 65 %; Platelet Count 402 k/uL (150-450); RBC 4.66 m/uL (3.80-5.40); RDW 13.5 % (11.5-15.5); WBC 16.7 k/uL (3.8-10.6)
[2019-09-09 22:45] LABS: Appearance,Urine Cloudy (Clear); Bacteria,Urine Rare /hpf; Bilirubin,Urine Negative (Negative); Blood,Urine Negative (Negative); Color,Urine Yellow; Glucose,Urine (UA) Negative (Negative); Ketones,Urine Negative (Negative); Leukocyte Esterase,Urine Moderate (Negative); Mucus,Urine Rare /hpf; Nitrite,Urine Negative (Negative); PH, Urine 5.5 (5.0-8.0); Protein,Urine Negative (Negative); RBC,Urine 5 /hpf (0-5); Specific Gravity,Urine 1.021 (1.001-1.035); Squamous Epithelial Cell,Urine 8 /hpf (0-4); Urobilinogen,Urine <2.0 mg/dL (<2.0); WBC,Urine 7 /hpf (0-5)
[2019-09-09 22:51] LABS: ALT 19 U/L (4-34); AST 21 U/L (14-36); African American GFR (CKD) >90 (>60 ml/min/1.73 sqM); Albumin 4.4 g/dL (3.5-5.0); Alkaline Phosphatase 70 U/L (38-126); Amylase 71 U/L (30-110); Anion Gap 10 mmol/L; Blood Urea Nitrogen 13 mg/dL (7-17); Carbon Dioxide 21 mmol/L (22-30); Chloride 105 mmol/L (98-107); Glucose 96 mg/dL (74-99); Non-African American GFR(CKD) 84 (>60 ml/min/1.73 sqM); Potassium 4.5 mmol/L (3.5-5.1); Sodium 136 mmol/L (137-145); Total Bilirubin <0.1 mg/dL (0.2-1.3); Total Protein 7.1 g/dL (6.3-8.2)
[2019-09-09] MEDS ORDERED: HYDROmorphone 1 MG/ML 1 ML SYRINGE IVP STA (23:45)
--- NOTE | 2019-09-09 23:54 | US ---
EXAMINATION TYPE: US gallbladder DATE OF EXAM: 09/09/2019 COMPARISON: CT, US CLINICAL HISTORY: pain. Pain x 1 day. EXAM MEASUREMENTS: Liver Length: 14.7 cm Gallbladder Wall: 0.25 cm CBD: 0.38 cm Right Kidney: 10.5 x 5.5 x 4.9 cm Limited due to gas. Pancreas: Tail obscured by gas. Portions seen appear wnl. Liver: Appears to have an increased echogenicity. Appears slightly coarse. Gallbladder: Appears to be anechoic. Evidence for sonographic Nice's sign: No CBD: Appears to be wnl. Right Kidney: No hydronephrosis or masses seen IMPRESSION: Negative exam. No gallstones or dilated ducts. There is probably some fatty infiltration of the liver.
[2019-09-10] MEDS ORDERED: ONDANSETRON 4 MG ODT STARTER PACK 2 TAB BTL PO STA (00:10)
[2019-09-10] MEDS ORDERED: ACET/COD 300 MG/30 MG STARTER PACK 6 TAB BTL PO STA (00:10)
[2019-09-10 00:19] VITALS: BP 116/81; PULSE 75; RESP 18; TEMP 97.5
== END 2019-09-10 00:20 | disposition home or self-care (01) ==
LOC: EC 21:16
DX: K85.90 Acute pancreatitis without necrosis or infection, unspecified (principal); M25.519 Pain in unspecified shoulder; I10 Essential (primary) hypertension; F17.200 Nicotine dependence, unspecified, uncomplicated; F41.9 Anxiety disorder, unspecified; F32.9 Major depressive disorder, single episode, unspecified; Z79.899 Other long term (current) drug therapy; Z88.2 Allergy status to sulfonamides; Z87.19 Personal history of other diseases of the digestive system
CPT/HCPCS: 36415; 80053; 82150; 83605; 83690; 85025; 81001; 76705; 74177; 99285; 96374; 96375 ×3; 96361 ×2; J2270; J2405; J1170; S0119; C9113; Q9967

== ENCOUNTER → 2019-11-18 | Outpatient (CLI) | payer OTHER ==
[2019-11-18 15:44] LABS: Basophils # (A) 0.1 k/uL (0-0.2); Basophils % (A) 1 %; Eosinophils # (A) 0.2 k/uL (0-0.7); Eosinophils % (A) 1 %; HCT 40.6 % (34.0-46.0); HGB 12.8 gm/dL (11.4-16.0); Lymphocytes # (A) 2.9 k/uL (1.0-4.8); Lymphocytes % (A) 21 %; MCH 27.8 pg (25.0-35.0); MCHC 31.5 g/dL (31.0-37.0); MCV 88.3 fL (80.0-100.0); Mean Platelet Volume 6.7; Monocytes # (A) 0.7 k/uL (0-1.0); Monocytes % (A) 5 %; Neutrophils # (A) 10.1 k/uL (1.3-7.7); Neutrophils % (A) 71 %; Platelet Count 383 k/uL (150-450); RDW 13.2 % (11.5-15.5); WBC 14.3 k/uL (3.8-10.6)
[2019-11-18 15:54] LABS: ALT 25 U/L (4-34); AST 24 U/L (14-36); African American GFR (CKD) >90 (>60 ml/min/1.73 sqM); Albumin 4.1 g/dL (3.5-5.0); Alkaline Phosphatase 75 U/L (38-126); Anion Gap 7 mmol/L; Blood Urea Nitrogen 10 mg/dL (7-17); Calcium 9.4 mg/dL (8.4-10.2); Carbon Dioxide 25 mmol/L (22-30); Chloride 105 mmol/L (98-107); Glucose 106 mg/dL (74-99); Non-African American GFR(CKD) >90 (>60 ml/min/1.73 sqM); Potassium 4.5 mmol/L (3.5-5.1); Sodium 137 mmol/L (137-145); Total Bilirubin 0.2 mg/dL (0.2-1.3); Total Protein 7.1 g/dL (6.3-8.2)
--- NOTE | 2019-11-18 16:56 | CT ---
EXAMINATION TYPE: CT abdomen pelvis w con DATE OF EXAM: 11/18/2019 HISTORY: LLQ pain CT DLP: 480.8mGycm Automated Exposure Control for Dose Reduction was Utilized. CONTRAST: CT scan of the abdomen and pelvis is performed with IV Contrast, patient injected with 100 mL of Isov ue 300. COMPARISON: CT abdomen and pelvis November 09, 2019 and older [address]s FINDINGS: LUNG BASES: Anterior bibasilar linear scarring and/or atelectasis. LIVER/GB: No significant abnormality is appreciated. PANCREAS: No significant abnormality is seen. SPLEEN: No significant abnormality is seen. ADRENALS: No significant abnormality is seen. KIDNEYS: No significant abnormality is seen. BOWEL: Oral contrast reaches level of rectum. No suspicious small or large bowel dilatation. Low-lyin g cecum into the right pelvis coronal image 31. Terminal ileum thought within normal limits. Normal a scending appendix coronal image 38 for reference. Few scattered diverticula in the colon. Mild wall t hickening in the sigmoid rectal colon without significant surrounding fat stranding. UTERUS/ADNEXA: Anteverted uterus. Central hyperdensity likely reflects blood product from active mens truation at time of scan. Ovaries not enlarged. LYMPH NODES: No greater than 1cm abdominal or pelvic lymph nodes are appreciated. OSSEOUS STRUCTURES: No significant abnormality is seen. OTHER: No significant additional abnormality is seen. IMPRESSION: Occasional colonic diverticula without CT evidence for acute diverticulitis currently. Pe rhaps Mild uncomplicated distal acute colitis on current study. Differential includes infectious or i nflammatory etiologies. Correlate clinically.
== END | disposition home or self-care (01) ==
LOC: RADCTMAIN 15:00
PROVIDERS: ATTEND Family Medicine
DX: K57.30 Diverticulosis of large intestine without perforation or abscess without bleeding (principal); R10.32 Left lower quadrant pain; D72.9 Disorder of white blood cells, unspecified; Z88.2 Allergy status to sulfonamides
CPT/HCPCS: 80053; 85025; 74177; 36415; Q9967

== ENCOUNTER → 2020-02-05 | Outpatient (CLI) | payer OTHER ==
[2020-02-05 12:38] LABS: Basophils # (A) 0.1 k/uL (0-0.2); Basophils % (A) 1 %; Eosinophils # (A) 0.3 k/uL (0-0.7); Eosinophils % (A) 2 %; HCT 38.8 % (34.0-46.0); HGB 12.2 gm/dL (11.4-16.0); Lymphocytes # (A) 3.5 k/uL (1.0-4.8); Lymphocytes % (A) 25 %; MCH 27.5 pg (25.0-35.0); MCHC 31.4 g/dL (31.0-37.0); MCV 87.4 fL (80.0-100.0); Mean Platelet Volume 6.8; Monocytes # (A) 0.7 k/uL (0-1.0); Monocytes % (A) 5 %; Neutrophils # (A) 9.1 k/uL (1.3-7.7); Neutrophils % (A) 65 %; Platelet Count 402 k/uL (150-450); RBC 4.44 m/uL (3.80-5.40); RDW 14.2 % (11.5-15.5); WBC 13.9 k/uL (3.8-10.6)
[2020-02-05 19:17] LABS: Erythrocyte Sedimentation Rate 14 mm/Hr (0-20)
[2020-02-05 20:11] LABS: African American GFR (CKD) 106.1 (60.0-200.0); Albumin 4.3 g/dL (3.80-4.90); Albumin/Globulin Ratio 2.05 (1.60-3.17); Anion Gap 8.2 mmol/L (4.00-12.00); BUN/Creat Ratio 11.25 Ratio (12.00-20.00); C Reactive Protein 0.5 mg/dL (0.0-0.8); Calcium 9.4 mg/dL (8.7-10.3); Carbon Dioxide 23.8 mmol/L (21.6-31.8); Globulin 2.1 g/dL (1.6-3.3); Non-African American GFR(CKD) 91.6 (60.0-200.0); Potassium 4.3 mmol/L (3.5-5.5); Total Bilirubin 0.2 mg/dL (0.3-1.2); Total Protein 6.4 g/dL (6.2-8.2)
[2020-02-05 20:31] LABS: Gliadin AB IgA, Deaminated NEGATIVE (NEGATIVE); Gliadin AB IgA, Unit <0.2 U/mL; Gliadin AB IgG, Deaminated NEGATIVE (NEGATIVE)
== END | disposition home or self-care (01) ==
LOC: LABWHC1 11:07
PROVIDERS: ATTEND Nurse Practitioner
DX: R19.7 Diarrhea, unspecified (principal)
CPT/HCPCS: 36415; 80053; 83516; 83630; 83993; 85025; 85652; 86140; 87045; 87046; 87324; 87328; 87329

== ENCOUNTER → 2020-03-04 | Day surgery (SDC) | payer OTHER ==
[2020-03-02 14:24] VITALS: BMI 28.3
[~2020-03-04] MED LIST: LACTATED RINGERS 1,000 ML IV SCH; LIDOCAINE 1% (10MG/ML) FOR IV START INTRADERMA PRN; MIDAZOLAM 2 MG/2 ML VIAL ONE; PROPOFOL 10 MG/ML 20 ML VIAL IV ONE
[2020-03-04 10:42] VITALS: RESP 16; TEMP 98.3
--- NOTE | 2020-03-04 12:04 | P.PCN ---
Date of Procedure: 03/04/20 Procedure(s) Performed: BRIEF HISTORY: Patient is a 38-year-old pleasant white female scheduled for an elective colonoscopy as a part of evaluation of chronic diarrhea for the last 20 years duration. She has bowel movements every 12 a day which are loose to watery in consistency but no blood or mucus in the stool. His of severe abdominal bloating. PROCEDURE PERFORMED: Colonoscopy With random biopsy. PREOPERATIVE DIAGNOSIS:Chronic diarrhea for 20 years duration]. IV sedation per Anesthesia. PROCEDURE: After informed consent was obtained, the patient, was brought into the endoscopy unit. IV sedation was administered by Anesthesia under continuous monitoring. Digital rectal examination was normal. Initially the Olympus CF-160 flexible video colonoscope was then inserted in the rectum, gradually advanced into the cecum without any difficulty. Careful examination was performed as the scope was gradually being withdrawn. Ileocecal valve and the appendiceal orifice were visualized and appeared normal. Prep was fair. Mucosa of the cecum, ascending colon, transverse colon, descending colon, sigmoid colon, and rectum appeared normal. Retroflexion was performed in the rectum and no lesions were seen. Scattered left sided diverticulosis seen. Random biopsies were done from ascending and descending colon to rule out microscopic/collagenous colitis. The patient tolerated the procedure well. IMPRESSION: Normal-appearing colon from rectum to cecum with no evidence of colitis or col orectal neoplasia Scattered left-sided diverticula. RECOMMENDATIONS: Findings of this examination were discussed with the patient as well as her family. She was advised to follow with the biopsy results and she will be seen in office in 2 weeks].
[2020-03-04 12:29] VITALS: BP 97/63; PULSE 95
== END ==
LOC: ORWHC2ENDO 10:08
PROVIDERS: ATTEND Internal Medicine Gastroenterology
DX: K57.30 Diverticulosis of large intestine without perforation or abscess without bleeding (principal); K63.89 Other specified diseases of intestine; K58.0 Irritable bowel syndrome with diarrhea; I10 Essential (primary) hypertension; K21.9 Gastro-esophageal reflux disease without esophagitis; F17.210 Nicotine dependence, cigarettes, uncomplicated; Z79.899 Other long term (current) drug therapy; Z88.2 Allergy status to sulfonamides; Z98.890 Other specified postprocedural states
CPT/HCPCS: 81025; 88305; 45380; J2250; J2704

== ENCOUNTER → 2020-08-15 | Outpatient (CLI) | payer OTHER ==
--- NOTE | 2020-08-15 08:46 | US ---
EXAMINATION TYPE: US abdomen complete DATE OF EXAM: 08/15/2020 COMPARISON: NONE CLINICAL HISTORY: 39-year-old female R10.11 RIGHT UPPER QUAD PAIN. Abdominal pain, history of colitis TECHNIQUE: Multiple sonographic images of the abdomen are obtained. FINDINGS: EXAM MEASUREMENTS: Liver Length: 14.4 cm Gallbladder Wall: 0.2 cm CBD: 0.4 cm Spleen: 9.7 cm Right Kidney: 9.8 x 3.9 x 4.8 cm Left Kidney: 10.7 x 4.7 x 5.5 cm Pancreas: Suboptimal visualization the pancreatic head due to shadowing from bowel gas. Remainder sh ows no gross abnormality. Liver: Echogenic relative to the adjacent right kidney. No focal lesion seen. Gallbladder: wnl Evidence for sonographic Nice's sign: no CBD: wnl Spleen: wnl Right Kidney: No hydronephrosis Left Kidney: No hydronephrosis Upper IVC: wnl Abd Aorta: wnl IMPRESSION: 1. Echogenic liver suggesting underlying mild to moderate fatty infiltration. 2. No gallstones or biliary ductal dilatation.
== END | disposition home or self-care (01) ==
LOC: RADUSWWP 07:37
PROVIDERS: ATTEND Family Medicine
DX: R93.2 Abnormal findings on diagnostic imaging of liver and biliary tract (principal)
CPT/HCPCS: 76700

== ENCOUNTER → 2022-04-05 | Outpatient (CLI) | payer OTHER ==
[2022-04-05 18:21] LABS: Basophils # (A) 0.08 X 10*3/uL (0.00-0.10); Basophils % (A) 0.5 %; Eosinophils # (A) 0.25 X 10*3/uL (0.04-0.35); Eosinophils % (A) 1.7 %; HCT 37.7 % (37.2-46.3); HGB 11.5 g/dL (12.0-15.0); Immature Grans, Automated 0.9 %; Lymphocytes # (A) 2.98 X 10*3/uL (0.90-5.00); Lymphocytes % (A) 19.9 %; MCH 23.8 pg (27.0-32.0); MCHC 30.5 g/dL (32.0-37.0); MCV 78.1 fL (80.0-97.0); Mean Platelet Volume 9.4 fL (9.5-12.2); Monocytes # (A) 1.03 X 10*3/uL (0.20-1.00); Monocytes % (A) 6.9 %; NRBC Per 100 WBC 0 /100 WBCS (0.0-0.0); Neutrophils % (A) 70.1 %; Platelet Count 444 X 10*3/uL (140-440); RBC 4.83 X 10*6/uL (4.10-5.20); RDW 20.8 % (11.5-14.5); WBC 14.97 X 10*3/uL (4.50-10.00)
[2022-04-05 18:53] LABS: % Iron Saturation 4.98 (12.00-45.00); Ferritin 11.9 ng/mL (10.0-291.0)
== END | disposition home or self-care (01) ==
LOC: LABWHC1 13:11
PROVIDERS: ATTEND Family Medicine
DX: D50.9 Iron deficiency anemia, unspecified (principal)
CPT/HCPCS: 36415; 82607; 82728; 82746; 83540; 83550; 85025

== ENCOUNTER → 2022-07-17 | Outpatient (CLI) | payer OTHER ==
[2022-07-17 23:22] LABS: Basophils # (A) 0.08 X 10*3/uL (0.00-0.10); Basophils % (A) 0.5 %; Eosinophils # (A) 0.19 X 10*3/uL (0.04-0.35); Eosinophils % (A) 1.2 %; HCT 41.8 % (37.2-46.3); HGB 13.5 g/dL (12.0-15.0); Immature Grans, Automated 0.9 %; Lymphocytes # (A) 2.92 X 10*3/uL (0.90-5.00); Lymphocytes % (A) 17.9 %; MCHC 32.3 g/dL (32.0-37.0); MCV 86.5 fL (80.0-97.0); Mean Platelet Volume 9.3 fL (9.5-12.2); Monocytes # (A) 1.01 X 10*3/uL (0.20-1.00); Monocytes % (A) 6.2 %; NRBC Per 100 WBC 0 /100 WBCS (0.0-0.0); Neutrophils # (A) 11.98 X 10*3/uL (1.80-7.70); Neutrophils % (A) 73.3 %; Platelet Count 378 X 10*3/uL (140-440); RBC 4.83 X 10*6/uL (4.10-5.20); WBC 16.33 X 10*3/uL (4.50-10.00)
== END | disposition home or self-care (01) ==
LOC: LABWHC1 16:23
PROVIDERS: ATTEND Family Medicine
DX: D50.9 Iron deficiency anemia, unspecified (principal); D72.829 Elevated white blood cell count, unspecified
CPT/HCPCS: 36415; 82728; 85025

== ENCOUNTER → 2022-10-11 | Outpatient (CLI) | payer OTHER ==
[2022-10-12 03:27] LABS: African American GFR (CKD) 103.9 (60.0-200.0); Anion Gap 11.6 mmol/L (10.00-18.00); BUN/Creat Ratio 15.25 Ratio (12.00-20.00); Blood Urea Nitrogen 12.2 mg/dL (9.0-27.0); Calcium 9.6 mg/dL (8.7-10.3); Carbon Dioxide 23.4 mmol/L (20.0-27.5); Non-African American GFR(CKD) 89.7 (60.0-200.0); Potassium 4.4 mmol/L (3.5-5.5)
[2022-10-12 03:50] LABS: Basophils # (A) 0.06 X 10*3/uL (0.00-0.10); Basophils % (A) 0.4 %; Eosinophils # (A) 0.23 X 10*3/uL (0.04-0.35); Eosinophils % (A) 1.7 %; HCT 39.7 % (37.2-46.3); HGB 12.6 g/dL (12.0-15.0); Immature Grans, Automated 0.9 %; Lymphocytes # (A) 2.75 X 10*3/uL (0.90-5.00); Lymphocytes % (A) 20.1 %; MCH 28.7 pg (27.0-32.0); MCHC 31.7 g/dL (32.0-37.0); MCV 90.4 fL (80.0-97.0); Mean Platelet Volume 9.3 fL (9.5-12.2); Monocytes # (A) 0.98 X 10*3/uL (0.20-1.00); Monocytes % (A) 7.2 %; NRBC Per 100 WBC 0 /100 WBCS (0.0-0.0); Neutrophils # (A) 9.53 X 10*3/uL (1.80-7.70); Neutrophils % (A) 69.7 %; Platelet Count 384 X 10*3/uL (140-440); RBC 4.39 X 10*6/uL (4.10-5.20); RDW 13.8 % (11.5-14.5); WBC 13.67 X 10*3/uL (4.50-10.00)
== END | disposition home or self-care (01) ==
LOC: LABWHC1 16:08
PROVIDERS: ATTEND Family Medicine
DX: F33.41 Major depressive disorder, recurrent, in partial remission (principal); Z79.899 Other long term (current) drug therapy; D50.9 Iron deficiency anemia, unspecified; E78.5 Hyperlipidemia, unspecified; F41.1 Generalized anxiety disorder
CPT/HCPCS: 36415; 80048; 85025

== ENCOUNTER 2023-01-11 19:02 | Emergency (ER) | payer OTHER ==
[2023-01-11 19:17] VITALS: TEMP 98.4
--- NOTE | 2023-01-11 20:35 | XR ---
EXAMINATION TYPE: XR Hip LT and AP Pelvis DATE OF EXAM: 01/11/2023 7:35 PM INDICATION: Patient age:Female; 42 years old; Reason for study: L hip injury; COMPARISON: CT 06/23/2015. TECHNIQUE: The left hip was examined in the frontal and lateral projections and a AP pelvis. FINDINGS: No evidence for acute process, joint dislocation or significant soft tissue swelling. Remot e injury to the left pubic symphysis and left sacrum. IMPRESSION: 1. No acute process. 2. No significant osteoarthrosis changes. 3. Remote anterior left pubic symphysis and left sacrum as seen on 2014 CT.
[2023-01-11] MEDS ORDERED: KETOROLAC 15 MG/ML 1 ML VIAL IM STA (21:34)
[2023-01-11] MEDS ORDERED: DEXAMETHASONE SOD PHOSPHATE 10 MG/ML 1 ML VIAL IM STA (21:34)
[2023-01-11] MEDS ORDERED: ACET/COD 300 MG/30 MG STARTER PACK 6 TAB BTL PO STA (21:36)
--- NOTE | 2023-01-11 21:36 | ED ---
Lower Extremity Injury HPI - General Chief Complaint: Extremity Injury, Lower Stated Complaint: Hip pain Time Seen by Provider: 01/11/23 21:21 Source: patient Mode of arrival: wheelchair - History of Present Illness Initial Comments: 42-year-old female presenting with chief complaint of left hip injury. She states that 3 day ago she slipped and fell. She states that if she stays still the pain subsides and starts again with range of motion. She has been taking Motrin which helps somewhat. She has previous history of fracture to the pelvis. No numbness, tingling, weakness. - Related Data Home Medications Medication Instructions Recorded Confirmed LORazepam [Ativan] 0.5 mg PO HS 10/08/17 03/04/20 Pristiq(Unk Dose) 1 tab PO HS 03/02/20 03/04/20 Allergies Allergy/AdvReac Type Severity Reaction Status Date / Time Sulfa (Sulfonamide Allergy Mild Rash/Hives Verified 01/11/23 19:17 Antibiotics) Review of Systems ROS Statement: Those systems with pertinent positive or pertinent negative responses have been documented in the HPI. ROS Other: All systems not noted in ROS Statement are negative. Past Medical History Past Medical History: Hyperlipidemia, Hypertension Additional Past Medical History / Comment(s): IBS, high heart rate, high white blood cell count, diverticulitis, anxiety History of Any Multi-Drug Resistant Organisms: None Reported Past Surgical History: No Surgical Hx Reported, Uterine Ablation Past Anesthesia/Blood Transfusion Reactions: No Reported Reaction Past Psychological History: Anxiety, Depression Smoking Status: Current every day smoker Past Alcohol Use History: Occasional Past Drug Use History: None Reported - Past Family History Sister(s) Family Medical History: Cancer Additional Family Medical History / Comment(s): breast CA Mother History Unknown: Yes Family Medical History: Cancer Additional Family Medical History / Comment(s): Breast Cancer General Exam Limitations: no limitations General appearance: alert, in no apparent distress Head exam: Present: atraumatic, normocephalic, normal inspection Eye exam: Present: normal appearance Neck exam: Present: normal inspection, full ROM Left Hip exam: Present: normal inspection, tenderness. Absent: full ROM, ecchymosis, deformity, shortening Neurological exam: Present: alert, oriented X3, CN II-XII intact Psychiatric exam: Present: normal affect, normal mood Skin exam: Present: warm, dry, intact, normal color. Absent: rash Course Vital Signs 01/11/23 01/11/23 19:12 21:37 Temperature 98.4 F Pulse Rate 136 H 101 H Respiratory 19 16 Rate Blood Pressure 128/83 127/79 O2 Sat by Pulse 97 96 Oximetry Medical Decision Making - Medical Decision Making Was pt. sent in by a medical professional or institution (, SHREYA, TABLEAU DEVELOPER, urgent care, hospital, or [place] health care facility...) When possible be specific @ -No Did you speak to anyone other than the patient for history (EMS, parent, family, police, friend...)? What history was obtained from this source @ -No Did you review nursing and triage notes (agree or disagree)? Why? @ -I reviewed and agree with nursing and triage notes Were old charts reviewed (outside hosp., previous admission, EMS record, old EKG, old radiological studies, urgent care reports/EKG's, [place] health care facility records)? Report findings @ -No old charts were reviewed Differential Diagnosis (chest pain, altered mental status, abdominal pain women, abdominal pain men, vaginal bleeding, weakness, fever, dyspnea, syncope, headache, dizziness, GI bleed, back pain, seizure, CVA, palpatations, mental health, musculoskeletal)? @ -Differential Musculoskeletal Muscular strain, contusion, ligament sprain, fracture, arthritis, septic arthritis, bursitis, cellulitis, muscle spasm, nerve compression, DVT, arterial occlusion, herpes zoster, electrolyte abnormality, tumor.... This is not meant to be in all inclusive list EKG interpreted by me (3pts min.). @ -As above X-rays interpreted by me (1pt min.). @ -X-ray shows no acute process. No significant osteoarthrosis changes. Remote anterior left pubic symphysis and left sacrum injury CT interpreted by me (1pt min.). @ -None done U/S interpreted by me (1pt. min.). @ -None done What testing was considered but not performed or refused? (CT, X-rays, U/S, labs)? Why? @ -None What meds were considered but not given or refused? Why? @ -None Did you discuss the management of the patient with other professionals (professionals i.e. , SHREYA, TABLEAU DEVELOPER, lab, RT, psych nurse, social services analyst, silverware assembler, teacher, chief fundraising officer, case packer)? Give summary @ -No Was smoking cessation discussed for >3mins.? @ -No Was critical care preformed (if so, how long)? @ -No Were there social determinants of health that impacted care today? How? (Homelessness, low income, unemployed, alcoholism, drug addiction, transportation, low edu. Level, literacy, decrease access to med. care, correction, rehab)? @ -No Was there de-escalation of care discussed even if they declined (Discuss DNR or withdrawal of care, Hospice)? DNR status @ -No What co-morbidities impacted this encounter? (DM, HTN, Smoking, COPD, CAD, C ancer, CVA, ARF, Chemo, Hep., AIDS, mental health diagnosis, sleep apnea, morbid obesity)? @ -None Was patient admitted / discharged? Hospital course, mention meds given and route, prescriptions, significant lab abnormalities, going to OR and other pertinent info. @ -42-year-old female presenting with chief complaint of left hip pain post i njury. X-rays negative for fracture or dislocation. Patient was educated on supportive management at home. [facility], instructed to follow-up with him if pain persists. Follow-up with PCP. Report back to ER with any new or worsening symptoms. Discussed return parameters and answered all questions. Patient conveyed verbal understanding and agreed to the plan. I discussed this case in detail with my attending Dr. Puckett Undiagnosed new problem with uncertain prognosis? @ -No Drug Therapy requiring intensive monitoring for toxicity (Heparin, Nitro, Insulin, Cardizem)? @ -No Were any procedures done? @ -No Diagnosis/symptom? @ -Hip pain Acute, or Chronic, or Acute on Chronic? @ -Acute Uncomplicated (without systemic symptoms) or Complicated (systemic symptoms)? @ -Uncomplicated Side effects of treatment? @ -No Exacerbation, Progression, or Severe Exacerbation? @ -No Poses a threat to life or bodily function? How? (Chest pain, [place], [place], pneumonia, PE, COPD, DKA, ARF, appy, cholecystitis, CVA, Diverticulitis, Homicidal, Suicidal, threat to staff... and all critical care pts) @ -No Disposition Clinical Impression: Hip pain Disposition: HOME SELF-CARE Condition: Good Instructions (If sedation given, give patient instructions): Hip Pain (ED) Additional Instructions: Follow-up with PCP. Report back to ER with any new or worsening symptoms. Take Motrin and Tylenol as needed for pain control. Is patient prescribed a controlled substance at d/c from ED?: No Referrals: Isidro Jason MD [Primary Care Provider] - 1-2 days Eric Hester MD [STAFF PHYSICIAN] - 1-2 days Time of Disposition: 21:36
[2023-01-11 21:38] VITALS: BP 127/79; RESP 16
[2023-01-11 21:43] VITALS: PULSE 101
[2023-01-11] MEDS ORDERED: LIDOCAINE 5% PATCH TOPICAL SCH (22:00)
== END 2023-01-11 21:57 | disposition home or self-care (01) ==
LOC: EC 19:02
DX: M25.552 Pain in left hip (principal); I10 Essential (primary) hypertension; F41.9 Anxiety disorder, unspecified; F32.A Depression, unspecified; F17.200 Nicotine dependence, unspecified, uncomplicated; Z79.899 Other long term (current) drug therapy; Z88.1 Allergy status to other antibiotic agents; Z88.2 Allergy status to sulfonamides
CPT/HCPCS: 73502; 99283; 96372; J1100; J1885

== ENCOUNTER → 2023-05-27 | Outpatient (CLI) | payer OTHER ==
[2023-05-27 15:56] LABS: Basophils # (A) 0.1 k/uL (0-0.2); Basophils % (A) 1 %; Eosinophils # (A) 0.2 k/uL (0-0.7); Eosinophils % (A) 1 %; HCT 39.1 % (34.0-46.0); Lymphocytes # (A) 2.9 k/uL (1.0-4.8); Lymphocytes % (A) 21 %; MCH 29.8 pg (25.0-35.0); MCHC 33.3 g/dL (31.0-37.0); MCV 89.2 fL (80.0-100.0); Monocytes # (A) 0.7 k/uL (0-1.0); Monocytes % (A) 5 %; Neutrophils # (A) 9.8 k/uL (1.3-7.7); Neutrophils % (A) 70 %; Platelet Count 388 k/uL (150-450); RBC 4.38 m/uL (3.80-5.40); RDW 14.3 % (11.5-15.5); WBC 13.9 k/uL (3.8-10.6)
[2023-05-28 03:02] LABS: ALT 28 U/L (8-44); AST 15 U/L (13-35); Albumin 4.3 g/dL (3.8-4.9); Albumin/Globulin Ratio 1.79 Ratio (1.60-3.17); Alkaline Phosphatase 100 U/L (41-126); BUN/Creat Ratio 10.25 Ratio (12.00-20.00); Blood Urea Nitrogen 8.2 mg/dL (9.0-27.0); Calcium 9.8 mg/dL (8.7-10.3); Carbon Dioxide 24.7 mmol/L (21.6-31.8); Chloride 104 mmol/L (96-109); Globulin 2.4 g/dL (1.6-3.3); Glucose 104 mg/dL (70-110); Potassium 4.3 mmol/L (3.5-5.5); Sodium 139 mmol/L (135-145); Total Bilirubin <0.2 mg/dL (0.3-1.2); Total Protein 6.7 g/dL (6.2-8.2)
--- NOTE | 2023-05-28 19:20 | MM ---
Reason for Exam: Screening (asymptomatic). Last mammogram was performed 3 year(s) and 10 month(s) ago. Patient History: Menarche at age 12. First Full-Term at age 15. Patient used Hormonal Contraceptives for 5 years. 08/21/2019, Benign Core Biopsy on the right side. 08/21/2019, Benign Core Biopsy on the right side. Sister had breast cancer, age 56. Mother had breast cancer, age 67. Risk Values: Mandi 5 year model risk: 8.8%. NCI Lifetime model risk: 50.5%. Prior Study Comparison: 07/22/2019 Bilateral Screening Mammogram, [facility]. 08/04/2019 Right Diagnostic Mammogram, [facility]. 08/21/2019 Right Diagnostic Mammogram, [facility]. Tissue Density: The breast tissue is heterogeneously dense. This may lower the sensitivity of mammography. Findings: Analyzed By CAD. 2 microclips in the right breast from prior biopsies. There is new medial nodular asymmetric density on the right cc view with adjacent microcalcifications centrally. Further evaluation is recommended. Otherwise, no significant change. Overall Assessment: Incomplete: need additional imaging evaluation, BI-RAD 0 Management: Special View Mammogram of the right breast. Diagnostic Breast Ultrasound of the right breast. 1. Additional views right breast to include spot 3-D CC, 3-D CC rolled lateral, and 3-D LM views. 2. Additional views right breast to include mag CC and mag lateral views. 3. Whole right breast ultrasound given patient's risk scores. . [facility] will attempt to contact patient to return for supplemental views and ultrasound if indicated. Electronically signed and approved by: Roseline Zavaleta M.D. Radiologist
== END | disposition home or self-care (01) ==
LOC: RADMAMWWP 14:54
PROVIDERS: ATTEND Family Medicine
DX: Z12.31 Encounter for screening mammogram for malignant neoplasm of breast (principal); D50.9 Iron deficiency anemia, unspecified; D72.828 Other elevated white blood cell count; E78.5 Hyperlipidemia, unspecified; Z80.3 Family history of malignant neoplasm of breast
CPT/HCPCS: 77067; 80053; 85025

== ENCOUNTER → 2023-06-07 | Outpatient (CLI) | payer OTHER ==
--- NOTE | 2023-06-07 14:12 | MM ---
Reason for Exam: Additional evaluation requested from abnormal screening. Last screening mammogram was performed less than 1 month ago. Patient History: Menarche at age 12. First Full-Term at age 15. Patient used Hormonal Contraceptives for 5 years. 08/21/2019, Benign Core Biopsy on the right side. 08/21/2019, Benign Core Biopsy on the right side. Sister had breast cancer, age 56. Mother had breast cancer, age 67. Risk Values: Mandi 5 year model risk: 8.8%. NCI Lifetime model risk: 50.5%. Tissue Density: Right: The breast tissue is heterogeneously dense. This may lower the sensitivity of mammography. Findings: Analyzed By CAD. Suspicious consultations in the right breast posterior nipple line slightly inferior 4.2 centers in the portal vein. Focal asymmetry upper medial aspect measuring 15 mm 3.8 seconds in upon RCC and 5.2 centers nipple on MLO view. Overall Assessment: Incomplete: need additional imaging evaluation, BI-RAD 0 Management: Diagnostic Breast Ultrasound of the right breast. Stereotactic Core Biopsy of the right breast. Tactic core biopsy of the calcifications and ultrasound evaluation of the right breast mass. Results were given to the patient verbally at the time of exam. Patient should continue monthly self-breast exams. A clinical breast exam by your physician is recommended on an annual basis. This exam should not preclude additional follow-up of suspicious palpable abnormalities. Note on Mandi scores and lifetime risk: 1. A Mandi score greater than 3% is considered moderate risk. If this is the case, consider specialist referral to assess eligibility for a risk reducing agent. 2. If overall lifetime risk for the development of breast cancer is 20% or higher, the patient may qualify for future screening with alternating mammogram and breast MRI. Electronically signed and approved by: Oscar Andre DO
--- NOTE | 2023-06-07 14:57 | USB ---
Reason for Exam: Additional evaluation requested from abnormal screening. Patient History: Menarche at age 12. First Full-Term at age 15. Patient used Hormonal Contraceptives for 5 years. 08/21/2019, Benign Core Biopsy on the right side. 08/21/2019, Benign Core Biopsy on the right side. Sister had breast cancer, age 56. Mother had breast cancer, age 67. Risk Values: Mandi 5 year model risk: 8.8%. NCI Lifetime model risk: 50.5%. Technique: Method: Targeted. Prior Study Comparison: 08/04/2019 Right Diagnostic Mammogram, [facility]. 08/21/2019 Right Diagnostic Mammogram, [facility]. 05/27/2023 Bilateral MG screening mammo w CAD, [facility]. Findings: The upper inner quadrant of the left breast, the axilla of the right breast and the retroareolar of the right breast were scanned. Technique utilized:US breast workup limited RT Image; Ultrasound imaging of: Area of concern, retroareolar region and axilla. No evidence for organizing fluid collection or mass. Focal fibroglandular tissue at 12:00 5.0 cm from the nipple measuring 2.1 x 1.1 x 1.6 cm felt to correlate with finding on mammography. Additional lesion is heterogenous and hypoechoic at 12:00 8 cm from the nipple measuring 7 x 4 x 7 mm. Overall Assessment: Suspicious, BI-RAD 4 Management: Ultrasound Core Biopsy of the right breast. Diagnostic Breast Ultrasound of the right breast in 6 months. Ultrasound-guided biopsy of the 12:00 5 cm from the nipple lesion measuring up to 2.1 cm. Short-term follow-up ultrasound in 6 months for lesion at 12:00 8 cm from the nipple Additionally there is a stereotactic core biopsy of the calcifications in the right breast. A clinical breast exam by your physician is recommended on an annual basis and results should be correlated with mammographic findings. This exam should not preclude additional follow-up of suspicious palpable abnormalities. Results were given to the patient verbally at the time of exam. Electronically signed and approved by: Oscar Andre DO
== END | disposition home or self-care (01) ==
LOC: RADMAMWWP 13:35
PROVIDERS: ATTEND Family Medicine
DX: R92.331 Mammographic heterogeneous density, right breast (principal); Z80.3 Family history of malignant neoplasm of breast
CPT/HCPCS: 77061; 77065

== ENCOUNTER → 2023-06-20 | Day surgery (SDC) | payer OTHER ==
[2023-06-20 10:54] VITALS: BP 109/67; PULSE 100; RESP 16; TEMP 97.9
== END ==
LOC: RADMAMWWP 10:14
PROVIDERS: ATTEND Surgery
DX: D05.11 Intraductal carcinoma in situ of right breast (principal); R92.8 Other abnormal and inconclusive findings on diagnostic imaging of breast
CPT/HCPCS: 19081; 88305; 88342; 88341; J2001

== ENCOUNTER → 2023-06-20 | Day surgery (SDC) | payer OTHER ==
--- NOTE | 2023-06-28 10:26 | USB ---
Risk Values: Mandi 5 year model risk: 8.8%. NCI Lifetime model risk: 50.5%. Prior Study Comparison: 08/21/2019 Right Diagnostic Mammogram, [facility]. 05/27/2023 Bilateral MG screening mammo w CAD, [facility]. 06/07/2023 Right MG 3D work up w/cad RT, [facility]. Pathology Description: Location: 12 o'clock. Marker Left Behind. Needle Type: Celero Cores: 3 Gauge: 12 The procedure of ultrasound guided core biopsy was explained to the patient. Benefits, alternatives, and risks were discussed. An informed consent was then obtained. The patient was placed in supine positioning for imaging and for the procedure. The overlying skin was prepped and draped in usual sterile fashion. Lidocaine buffered with bicarbonate was used as anesthetic into the skin and subcutaneous tissue up to area of concern in the right 12:00 breast 5 cm from the nipple as well as the right axilla. Under ultrasound guidance, a 12-gauge vacuum assisted biopsy gun device was used to obtain 4 core samples from the right 12:00 lesion and a single sample from the right axillary lymph node targeted. Following this, a biopsy clip was left in both lesions. The patient tolerated the procedure well without any immediate complication. The patient was kept in the radiology department for short stay after the procedure and then discharged home in stable condition. Postprocedure mammogram: The patient was transferred to mammography for physician ordered post procedure mammogram for clip placement verification. Impression: Successful, uncomplicated ultrasound guided core biopsy of area of concern in the right breast and right axillary lymph node, full pathology results to follow. Pathology Results: Results pending. Pathology Description: Marker Left Behind. Approach: Medial to Lateral Needle Type: Eviva Cores: 6 Skin Nicks: 1 Gauge: 9 The calcifications in question within the right breast were targeted by the undersigned. Procedure was performed by the undersigned. Informed consent was obtained and all of the patients questions were answered. The standard sterile technique was utilized and appropriate local anesthesia was obtained with 1% lidocaine. Mammotome probe was advanced and multiple core samples were obtained and sent to pathology for interpretation. Microclip marker was deployed at the site of biopsy. Post procedural mammogram demonstrates appropriate deployment of radiopaque clip marker. The patient tolerated the procedure well and left the department in stable condition. Pathology results are pending. Impression: Successful stereotactic core biopsy right breast. Pathology Results: Result: Malignant, Ductal carcinoma in situ, solid type. A. RIGHT BREAST, TWELVE O'CLOCK, ULTRASOUND GUIDED NEEDLE CORE BIOPSY: Fibroadenoma. B. RIGHT AXILLARY LYMPH NODE, NEEDLE CORE BIOPSY: Benign lymph node. 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 See Surgical Pathology Cancer Case Summary and Comment. Overall Assessment: Malignant Management: Surgical Consultation of the right breast. Stereotactic core biopsy of right breast calcifications. Electronically signed and approved by: Danilo Lantigua M.D. Radiologis
== END ==
LOC: RADUSWWP 10:06
PROVIDERS: ATTEND Surgery
DX: D24.1 Benign neoplasm of right breast (principal); R92.8 Other abnormal and inconclusive findings on diagnostic imaging of breast
CPT/HCPCS: 88305; 19081; 19083; 19084; 38505; A4648

== ENCOUNTER → 2023-06-28 | Outpatient (CLI) | payer OTHER ==
[2023-06-28 13:02] VITALS: BP 131/84; PULSE 118; RESP 18; TEMP 98.1
--- NOTE | 2023-06-28 13:30 | P.GSHP ---
History of Present Illness H&P Date: 06/28/23 Chief Complaint: DCIS right breast Roseline is a 42 year old whtie female seen in consultation for Dr. Jason regarding an abnormal right breast mammogram. She had ultrasound core biopsy of 2 sites in the right breast and a stereotactic core biopsy of the third site. T he patient underwent a bilateral mammogram on [id number]. The findings were BIRADS Seroquel and she was recommended to have a right breast ultrasound diagnostic mammogram. The right breast ultrasound was performed on as was the diagnostic mammogram. As a result of this ultrasound core biopsy of 2 sites were recommended and stereotactic core biopsy of an area of microcalcification was recommended. On the ultrasound focal fibroglandular tissue at 12:00 was noted measuring 2.1 x 1.6 cm additionally there was a lesion at 12:00 7 x 4 mm. Both were considered suspicious. Ultrasound core biopsy of the lesion at 12:00 revealed a fibroadenoma, ultrasound core biopsy of the second segment revealed a benign lymph node. Additionally the patient was noted to have a radiographic abnormality of microcalcifications in the right breast and the area expanded approximately 2.5 cm centrally an ultrasound core biopsy revealed ductal carcinoma in situ. The patient feels approximately 3 months ago some increased nodularity at the 12 o'clock position of the right breast. Of importance is the fact that she has had 1 breast biopsies in the right breast in the past, this was benign. She has not had any other surgery on her breast. She does not complain of any nipple discharge or skin changes. She has not had any recent trauma or infection in the breast. She had not had a mammogra for about 4 years Risk evaluation done prior to biopsy: 5 year risk: 8.8% Lifetime risk: 50.5% Caffeine: 3/4 of a two litter/day nicotine: 1 PPD for 25 years chocolate: occasional BCP: < 5 years hormones: none Family history: Mother: of breast cancer, diagnosed at 65 sister: breast cancer at 58 Hormonal History: menarche: 12 A1, age at : 15, breast fed: no periods regular; LMP June 07 Surgical history: [place] Medical History: COPD Social History: Nicotine: One pack per day for 25 years Alcohol: occasional drugs: none - Constitutional Constitutional: Reports fever, Reports sweats - EENT Eyes: denies blurred vision, denies pain Ears: bilateral: decreased hearing, tinnitus Ears, nose, mouth and throat: Reports headache - Breasts Breasts: bilateral: as per HPI - Cardiovascular Cardiovascular: Reports chest pain, Reports shortness of breath - Respiratory Respiratory: Reports cough - Gastrointestinal Comment: IBS Gastrointestinal: Reports diarrhea, Denies abdominal pain, Denies nausea, Denies vomiting - Genitourinary (Female) Genitourinary: Denies dysuria, Denies hematuria - Menstruation Menstruation: Reports period normal - Musculoskeletal Musculoskeletal: Denies myalgias - Integumentary Integumentary: Reports pruritus - Neurological Neurological: Reports numbness - Psychiatric Psychiatric: Reports anxiety - Endocrine Endocrine: Reports fatigue, Reports weight change - Hematologic/Lymphatic Comment: none - Allergic/Immunologic Allergic/Immunologic: Reports as per HPI Past Medical History Past Medical History: Hyperlipidemia, Hypertension Additional Past Medical History / Comment(s): IBS, high heart rate, high white blood cell count, diverticulitis, anxiety History of Any Multi-Drug Resistant Organisms: None Reported Past Surgical History: No Surgical Hx Reported, Uterine Ablation Past Anesthesia/Blood Transfusion Reactions: No Reported Reaction Past Psychological History: Anxiety, Depression Smoking Status: Current every day smoker Past Alcohol Use History: Occasional Additional Past Alcohol Use History / Comment(s): started smoking at age 19-1ppd Past Drug Use History: None Reported - Past Family History Sister(s) Family Medical History: Cancer Additional Family Medical History / Comment(s): breast CA Mother History Unknown: Yes Family Medical History: Cancer Additional Family Medical History / Comment(s): Breast Cancer Medications and Allergies Home Medications Medication Instructions Recorded Confirmed Type LORazepam [Ativan] 0.5 mg PO HS 10/08/17 06/28/23 History Pristiq(Unk Dose) 1 tab PO HS 03/02/20 06/28/23 History Aspirin [Children's Aspirin] 81 mg PO BID 06/10/23 06/28/23 History Atorvastatin [Lipitor] 20 mg PO DAILY 06/10/23 06/28/23 History Ferrous Sulfate [Iron (65 MG 65 mg PO BID 06/10/23 06/28/23 History Elemental)] Ubidecarenone [Co Q-10] 15 mg PO DAILY 06/10/23 06/28/23 History Allergies Allergy/AdvReac Type Severity Reaction Status Date / Time Sulfa (Sulfonamide Allergy Mild Rash/Hives Verified 06/28/23 12:54 Antibiotics) Surgical - Exam Vital Signs Temp Pulse Resp BP Pulse Ox 98.1 F 118 H 18 131/84 99 06/28/23 12:48 06/28/23 12:48 06/28/23 12:48 06/28/23 12:48 06/28/23 12:48 - General moderate distress - Eyes normal ocular movement - Neck trachea midline - Respiratory normal respiratory effort - Cardiovascular Heart Sounds: normal: S1, S2 - Abdomen Abdomen: soft, non tender, no guarding, no rigid, no rebound - Integumentary normzl turgor - Neurologic no disoriented, no combative - Musculoskeletal normal gait - Psychiatric oriented to time, oriented to person, oriented to place, speech is normal, memory intact Breast Exam: BRA: 36C Inspection: Bilateral grade 2 ptosis Palpation: Right breast: Ecchymosis from recent biopsy, fullness at the 12 o'clock position Right axilla: No adenopathy of concern Left breast: Multi-positional exam no dominant masses or nodules of concern Left axilla: No adenopathy of concern Results Mammogram and ultrasound reviewed in detail with Dr. 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 Jason
== END ==
LOC: WWCWWP 11:48
PROVIDERS: ATTEND Surgery
DX: D05.11 Intraductal carcinoma in situ of right breast (principal); D24.1 Benign neoplasm of right breast; E78.5 Hyperlipidemia, unspecified; F41.9 Anxiety disorder, unspecified; I10 Essential (primary) hypertension; J44.9 Chronic obstructive pulmonary disease, unspecified; K58.9 Irritable bowel syndrome, unspecified; F17.200 Nicotine dependence, unspecified, uncomplicated; Z80.3 Family history of malignant neoplasm of breast; Z88.2 Allergy status to sulfonamides; Z79.82 Long term (current) use of aspirin

== ENCOUNTER 2024-02-07 18:33 | Emergency (ER) | payer OTHER ==
[2024-02-07] MEDS: ACETAMINOPHEN TAB 325 MG TAB PO STA (19:32)
[2024-02-07] MEDS: LORazepam 2 MG/ML INJ IV STA (19:32)
[2024-02-07 19:41] LABS: Basophils # (A) 0.1 k/uL (0-0.2); Basophils % (A) 0 %; Eosinophils # (A) 0.1 k/uL (0-0.7); Eosinophils % (A) 1 %; HCT 35.8 % (34.0-46.0); Lymphocytes # (A) 2.7 k/uL (1.0-4.8); Lymphocytes % (A) 20 %; MCH 29.5 pg (25.0-35.0); MCHC 33.5 g/dL (31.0-37.0); MCV 87.8 fL (80.0-100.0); Mean Platelet Volume 6.9; Monocytes # (A) 0.6 k/uL (0-1.0); Monocytes % (A) 4 %; Neutrophils # (A) 10.3 k/uL (1.3-7.7); Neutrophils % (A) 74 %; Platelet Count 470 k/uL (150-450); RBC 4.07 m/uL (3.80-5.40); RDW 13.7 % (11.5-15.5)
[2024-02-07 19:55] LABS: ALT 23 U/L (4-34); AST 26 U/L (14-36); African American GFR (CKD) >90 (>60 ml/min/1.73 sqM); Alkaline Phosphatase 103 U/L (38-126); Anion Gap 10 mmol/L; Blood Urea Nitrogen 11 mg/dL (7-17); Calcium 9.8 mg/dL (8.4-10.2); Carbon Dioxide 19 mmol/L (22-30); Chloride 106 mmol/L (98-107); Glucose 129 mg/dL (74-99); Lipase 201 U/L (23-300); Magnesium 1.8 mg/dL (1.6-2.3); Non-African American GFR(CKD) >90 (>60 ml/min/1.73 sqM); Potassium 4.2 mmol/L (3.5-5.1); Sodium 135 mmol/L (137-145); Total Bilirubin 0.4 mg/dL (0.2-1.3); Total Protein 6.5 g/dL (6.3-8.2)
[2024-02-07 19:57] LABS: INR 0.9 (<1.2); Prothrombin Time 9.8 sec (10.0-12.5)
[2024-02-07 19:59] VITALS: RESP 18
--- NOTE | 2024-02-07 20:22 | XR ---
EXAMINATION TYPE: XR chest 2V DATE OF EXAM: 02/07/2024 COMPARISON: 10/08/2017 HISTORY: 43-year-old female with chest pain TECHNIQUE: AP and lateral views FINDINGS: Heart normal size. Aorta and pulmonary vasculature within normal limits. Mild interstitial prominence without consolidation or pleural effusion. IMPRESSION: Interstitial prominence may reflect bronchitis or asthma. Otherwise, no acute process seen.
--- NOTE | 2024-02-07 21:12 | ED ---
Chest Pain HPI - General Chief Complaint: Chest Pain Stated Complaint: chest pain Time Seen by Provider: 02/07/24 18:40 Source: patient Mode of arrival: ambulatory Limitations: no limitations - History of Present Illness Initial Comments: 43-year-old female with past medical history of tachycardia who presents to the emergency department reporting left-sided chest pain. Pain started this morning and has not stopped. She has had intermittent episodes of this over the past few months which always self resolved she feels short of breath as if she cannot take a deep breath in. Admits that it hurts when she takes a deep breath. She does have a history of inappropriate tachycardia. She denies any history of coronary disease. She has had stress testing previously however this was a long time ago. She does not follow with a support representative. She denies any history of DVT or PE. No fevers, chills or cough. No radiation of the pain. Denies concern for . No other alleviating, precipitating or modifying factors - Related Data Home Medications Medication Instructions Recorded Confirmed LORazepam [Ativan] 0.5 mg PO HS 10/08/17 02/07/24 Aspirin [Children's Aspirin] 162 mg PO HS 06/10/23 02/07/24 Atorvastatin [Lipitor] 20 mg PO HS 06/10/23 02/07/24 Ferrous Sulfate [Iron (65 MG 650 mg PO HS 06/10/23 02/07/24 Elemental)] Calcium Carbonate [Calcium] 600 mg PO HS 02/07/24 02/07/24 Desvenlafaxine [Pristiq ER] 100 mg PO HS 02/07/24 02/07/24 Ibuprofen [Motrin Ib] 400 mg PO Q8H PRN 02/07/24 02/07/24 Multivit with Calcium,Iron,Min 1 tab PO HS 02/07/24 02/07/24 [Women's Multivitamin] Ubidecarenone [Coenzyme Q10] 100 mg PO HS 02/07/24 02/07/24 Allergies Allergy/AdvReac Type Severity Reaction Status Date / Time Sulfa (Sulfonamide Allergy Mild Itching Verified 02/07/24 20:45 Antibiotics) Review of Systems ROS Statement: Those systems with pertinent positive or pertinent negative responses have been documented in the HPI. ROS Other: All systems not noted in ROS Statement are negative. Past Medical History Past Medical History: Hyperlipidemia, Hypertension Additional Past Medical History / Comment(s): IBS, high heart rate, high white blood cell count, diverticulitis, anxiety History of Any Multi-Drug Resistant Organisms: None Reported Past Surgical History: No Surgical Hx Reported, Uterine Ablation Past Anesthesia/Blood Transfusion Reactions: No Reported Reaction Past Psychological History: Anxiety, Depression Smoking Status: Former smoker Past Alcohol Use History: Occasional Past Drug Use History: None Reported - Past Family History Sister(s) Family Medical History: Cancer Additional Family Medical History / Comment(s): breast CA Mother History Unknown: Yes Family Medical History: Cancer Additional Family Medical History / Comment(s): Breast Cancer General Exam Limitations: no limitations General appearance: alert, anxious Head exam: Present: atraumatic, normocephalic, normal inspection Eye exam: Present: normal appearance, PERRL, EOMI. Absent: scleral icterus, conjunctival injection, periorbital swelling ENT exam: Present: normal exam, mucous membranes moist Neck exam: Present: normal inspection. Absent: tenderness, meningismus, lymphadenopathy Respiratory exam: Present: normal lung sounds bilaterally, other (Tachypnea). Absent: respiratory distress, wheezes, rales, rhonchi, stridor Cardiovascular Exam: Present: normal rhythm, tachycardia, normal heart sounds. Absent: systolic murmur, diastolic murmur, rubs, gallop, clicks GI/Abdominal exam: Present: soft, normal bowel sounds. Absent: distended, tenderness, guarding, rebound, rigid Extremities exam: Present: normal inspection, full ROM, normal capillary refill. Absent: tenderness, pedal edema, joint swelling, calf tenderness Back exam: Present: normal inspection Neurological exam: Present: alert, oriented X3, CN II-XII intact Psychiatric exam: Present: normal affect, normal mood Skin exam: Present: warm, dry, intact, normal color. Absent: rash Course Vital Signs 02/07/24 02/07/24 02/07/24 18:35 19:59 21:33 Temperature 98.5 F 98.2 F Pulse Rate 147 H 106 H 104 H Respiratory 40 H 18 18 Rate Blood Pressure 110/102 131/70 127/86 O2 Sat by Pulse 99 95 99 Oximetry Chest Pain MDM - MDM Was pt. sent in by a medical professional or institution (, PA, LAYDOWN MACHINE OPERATOR, urgent care, hospital, or snf...) When possible be specific @ -No Did you speak to anyone other than the patient for history (EMS, parent, family, police, friend...)? What history was obtained from this source @ -Spoke with patient's significant other Did you review nursing and triage notes (agree or disagree)? Why? @ -I reviewed and agree with nursing and triage notes Were old charts reviewed (outside hosp., previous admission, EMS record, old EKG, old radiological studies, urgent care reports/EKG's, snf records)? Report findings @ -No old charts were reviewed Differential Diagnosis (chest pain, altered mental status, abdominal pain women, abdominal pain men, vaginal bleeding, weakness, fever, dyspnea, syncope, headache, dizziness, GI bleed, back pain, seizure, CVA, palpatations, mental health, musculoskeletal)? @ -Differential Chest Pain: Stable Angina, Unstable Angina, STEMI, NSTEMI Aortic Dissection, Pneumothorax, Musculoskeletal, Esophageal Spasm GERD, Cholecystitis, Pancreatitis, Zoster, this is not meant to be an all-inclusive list. EKG interpreted by me (3pts min.). @ -Yes and demonstrates sinus tachycardia with a rate of 132. DE interval 130. QRS 78. QTc of 357. No acute ST segment elevations or depressions X-rays interpreted by me (1pt min.). @ -Yes and demonstrates no acute process CT interpreted by me (1pt min.). @ -None done U/S interpreted by me (1pt. min.). @ -None done What testing was considered but not performed or refused? (CT, X-rays, U/S, labs)? Why? @ -Echo however patient does not want to be admitted What meds were considered but not given or refused? Why? @ -Pain medications however patient refused Did you discuss the management of the patient with other professionals (professionals i.e. , PA, LAYDOWN MACHINE OPERATOR, lab, RT, psych nurse, social service technician, repairer recreational vehicle, teacher, loan officer assistant, case fitter)? Give summary @ -No Was smoking cessation discussed for >3mins.? @ -No Was critical care preformed (if so, how long)? @ -No Were there social determinants of health that impacted care today? How? (Homelessness, low income, unemployed, alcoholism, drug addiction, transportation, low edu. Level, literacy, decrease access to med. care, group home, rehab)? @ -No Was there de-escalation of care discussed even if they declined (Discuss DNR or withdrawal of care, Hospice)? DNR status @ -No What co-morbidities impacted this encounter? (DM, HTN, Smoking, COPD, CAD, Cancer, CVA, ARF, Chemo, Hep., AIDS, mental health diagnosis, sleep apnea, morbid obesity)? @ -Hyperlipidemia Was patient admitted / discharged? Hospital course, mention meds given and route, prescriptions, significant lab abnormalities, going to OR and other pertinent info. @ -Upon arrival patient seen and evaluated in room 7 upon arrival. She is markedly tachycardic. She is placed on the cardiac specialist. Twelve-lead EKG was performed. Laboratory studies are conducted. Chest x-ray was performed. Upon return the results they are discussed with the patient. Did offer admission for cardiac monitoring. Patient does not want to be admitted. States her pain is improved at this time. She was given Ativan for her anxiety upon her request and did not want anything for pain. D-dimer is negative. Troponin is negative. I discussed the limitations currently with our workup for which the patient understood. States she will follow-up with her primary care doctor for further testing. I did recommend echo and stress test. Patient will return if she has any new or worsening symptoms. She was given written and verbal discharge instructions and discharged home in stable condition Undiagnosed new problem with uncertain prognosis? @ -No Drug Therapy requiring intensive monitoring for toxicity (Heparin, Nitro, Insulin, Cardizem)? @ -No Were any procedures done? @ -No Diagnosis/symptom? @ -Acute pleuritic chest pain, sinus tachycardia Acute, or Chronic, or Acute on Chronic? @ -Acute Uncomplicated (without systemic symptoms) or Complicated (systemic symptoms)? @ -Complicated Side effects of treatment? @ -No Exacerbation, Progression, or Severe Exacerbation? @ -No Poses a threat to life or bodily function? How? (Chest pain, [place], [place], pneumonia, PE, COPD, DKA, ARF, appy, cholecystitis, CVA, Diverticulitis, Homicidal, Suicidal, threat to staff... and all critical care pts) @ -No Disposition Clinical Impression: Chest pain Disposition: HOME SELF-CARE Condition: Stable Instructions (If sedation given, give patient instructions): Chest Pain (ED) Additional Instructions: Please call your primary care doctor on [facility] to obtain an appointment. I recommend you have a Holter monitor, stress test and echo performed because of your symptoms. Please return to the emergency department should you have any new or worsening symptoms Is patient prescribed a controlled substance at d/c from ED?: No Referrals: Isidro Jason MD [Primary Care Provider] - 1-2 days Time of Disposition: 21:11
[2024-02-07 21:34] VITALS: BP 127/86; PULSE 104; TEMP 98.2
== END 2024-02-07 21:38 | disposition home or self-care (01) ==
LOC: EC 18:33
DX: R07.9 Chest pain, unspecified (principal); R00.0 Tachycardia, unspecified; Z87.891 Personal history of nicotine dependence
CPT/HCPCS: 36415; 93005; 85379; 80053; 83690; 83735; 84484; 85025; 85610; 85730; 87636; 71046; 99285; 96374; J2060

== ENCOUNTER 2024-02-08 20:51 | Observation (INO) | payer OTHER ==
--- NOTE | 2024-02-08 21:08 | ED ---
Chest Pain HPI - General Source: patient, RN notes reviewed, old records reviewed Mode of arrival: ambulatory Limitations: no limitations <Zina Salazar - Last Filed: 02/08/24 21:07> <Sofía Kumar - Last Filed: 02/09/24 10:44> - General Chief Complaint: Chest Pain Stated Complaint: Chest Pain Time Seen by Provider: 02/08/24 21:07 - History of Present Illness Initial Comments: Quick note: 42-year-old female presented to ER with chief complaint of chest discomfort. Patient was seen here yesterday for similar complaint and decided to go home and follow-up with PCP on Saturday. She states discomfort has persisted. She describes it as a squeezing sensation. She also has not endorsing nausea, lightheadedness and shortness of breath. She does report a history of anxiety. No known cardiac history. (Zina Salazar) 43-year-old female who presents emergency department reporting chest pain. Patient was seen in the emergency department yesterday for the same complaint. She was having left-sided chest pain which was worse with inspiration. Laboratory tests were within normal limits and patient wanted to go home to follow-up with her primary care doctor. She states that the pain has gotten worse. She states that she had to come back to the ER today as she did not think she could make it to her follow-up. She does have a history of inappropriate tachycardia. No history of coronary disease. No history of DVT or PE. No other alleviating, precipitating or modifying factors (Sofía Kumar) - Related Data Home Medications Medication Instructions Recorded Confirmed LORazepam [Ativan] 0.5 mg PO HS 10/08/17 02/07/24 Aspirin [Children's Aspirin] 162 mg PO HS 06/10/23 02/07/24 Atorvastatin [Lipitor] 20 mg PO HS 06/10/23 02/07/24 Ferrous Sulfate [Iron (65 MG 650 mg PO HS 06/10/23 02/07/24 Elemental)] Calcium Carbonate [Calcium] 600 mg PO HS 02/07/24 02/07/24 Desvenlafaxine [Pristiq ER] 100 mg PO HS 02/07/24 02/07/24 Ibuprofen [Motrin Ib] 400 mg PO Q8H PRN 02/07/24 02/07/24 Multivit with Calcium,Iron,Min 1 tab PO HS 02/07/24 02/07/24 [Women's Multivitamin] Ubidecarenone [Coenzyme Q10] 100 mg PO HS 02/07/24 02/07/24 Allergies Allergy/AdvReac Type Severity Reaction Status Date / Time Sulfa (Sulfonamide Allergy Mild Itching Verified 02/08/24 21:00 Antibiotics) Review of Systems ROS Other: All systems not noted in ROS Statement are negative. <Zina Salazar - Last Filed: 02/08/24 21:07> ROS Other: All systems not noted in ROS Statement are negative. <Sofía Kumar - Last Filed: 02/09/24 10:44> ROS Statement: Those systems with pertinent positive or pertinent negative responses have been documented in the HPI. Past Medical History Past Medical History: Hyperlipidemia, Hypertension Additional Past Medical History / Comment(s): IBS, high heart rate, high white blood cell count, diverticulitis, anxiety History of Any Multi-Drug Resistant Organisms: None Reported Past Surgical History: No Surgical Hx Reported, Uterine Ablation Past Anesthesia/Blood Transfusion Reactions: No Reported Reaction Past Psychological History: Anxiety, Depression Smoking Status: Former smoker Past Alcohol Use History: Occasional Past Drug Use History: None Reported - Past Family History Sister(s) Family Medical History: Cancer Additional Family Medical History / Comment(s): breast CA Mother History Unknown: Yes Family Medical History: Cancer Additional Family Medical History / Comment(s): Breast Cancer <Zina Salazar - Last Filed: 02/08/24 21:07> General Exam <Zina Salazar - Last Filed: 02/08/24 21:07> General appearance: alert, in no apparent distress Head exam: Present: atraumatic, normocephalic, normal inspection Eye exam: Present: normal appearance, PERRL, EOMI. Absent: scleral icterus, conjunctival injection, periorbital swelling ENT exam: Present: normal exam, mucous membranes moist Neck exam: Present: normal inspection. Absent: tenderness, meningismus, lymphadenopathy Respiratory exam: Present: normal lung sounds bilaterally. Absent: respiratory distress, wheezes, rales, rhonchi, stridor Cardiovascular Exam: Present: normal rhythm, tachycardia, normal heart sounds. Absent: systolic murmur, diastolic murmur, rubs, gallop, clicks GI/Abdominal exam: Present: soft, normal bowel sounds. Absent: distended, tenderness, guarding, rebound, rigid Extremities exam: Present: normal inspection, full ROM, normal capillary refill. Absent: tenderness, pedal edema, joint swelling, calf tenderness Back exam: Present: normal inspection Neurological exam: Present: alert, oriented X3, CN II-XII intact Psychiatric exam: Present: normal affect, normal mood Skin exam: Present: warm, dry, intact, normal color. Absent: rash <Sofía Kumar - Last Filed: 02/09/24 10:44> - General Exam Comments Initial Comments: Visual Physical Exam Vital signs reviewed General: Well-appearing, nontoxic, no acute distress. Head: Normocephalic, atraumatic Eyes: PERRLA, EOMI ENT: Airway patent Chest: Nonlabored breathing Skin: No visual rash, normal skin tone Neuro: Alert and oriented 3 Musculoskeletal: No gross abnormalities (Zina Salazar) Course Vital Signs 02/08/24 02/08/24 02/09/24 20:57 22:00 06:45 Temperature 97.9 F Pulse Rate 115 H 108 H 99 Pulse Rate [ 106 H Left Sitting Radial] Respiratory 20 18 18 Rate Blood Pressure 138/82 148/85 136/94 Blood Pressure [Right Arm] O2 Sat by Pulse 99 97 98 Oximetry 02/09/24 07:00 Temperature 98.3 F Pulse Rate Pulse Rate [ 97 Left Sitting Radial] Respiratory 16 Rate Blood Pressure Blood Pressure 124/89 [Right Arm] O2 Sat by Pulse 97 Oximetry Chest Pain MDM <Zina Salazar - Last Filed: 02/08/24 21:07> <Sofía Kumar - Last Filed: 02/09/24 10:44> - MDM I performed the quick note portion of this chart. Electronically signed by Zina Salazar PA-C (Zina Salazar) Was pt. sent in by a medical professional or institution (SHREYA Pino, PORTABLE MACHINE CUTTER, urgent care, hospital, or skilled nursing...) When possible be specific @ -No Did you speak to anyone other than the patient for history (EMS, parent, family, police, friend...)? What history was obtained from this source @ -No Did you review nursing and triage notes (agree or disagree)? Why? @ -I reviewed and agree with nursing and triage notes Were old charts reviewed (outside hosp., previous admission, EMS record, old EKG, old radiological studies, urgent care reports/EKG's, skilled nursing records)? Report findings @ -I reviewed the laboratory testing from yesterday in the emergency department. This includes the patient's D-dimer level which was negative Differential Diagnosis (chest pain, altered mental status, abdominal pain women, abdominal pain men, vaginal bleeding, weakness, fever, dyspnea, syncope, headache, dizziness, GI bleed, back pain, seizure, CVA, palpatations, mental health, musculoskeletal)? @ -Differential Chest Pain: Stable Angina, Unstable Angina, STEMI, NSTEMI Aortic Dissection, Pneumothorax, Musculoskeletal, Esophageal Spasm GERD, Cholecystitis, Pancreatitis, Zoster, this is not meant to be an all-inclusive list. EKG interpreted by me (3pts min.). @ -yes and demonstrates sinus tachycardia with a rate of 128. ID interval 123. QRS 75. QTc of 352. No acute ST segment elevations or depressions X-rays interpreted by me (1pt min.). @ -Yes and demonstrates no acute process CT interpreted by me (1pt min.). @ -None done U/S interpreted by me (1pt. min.). @ -None done What testing was considered but not performed or refused? (CT, X-rays, U/S, labs)? Why? @ -None What meds were considered but not given or refused? Why? @ -None Did you discuss the management of the patient with other professionals (professionals i.e. , PA, PORTABLE MACHINE CUTTER, lab, RT, psych nurse, executive secretary social welfare, new car sales manager, teacher, court officer, case reviewer)? Give summary @ -Spoke with Dr. Jason who agreed to admit the patient Was smoking cessation discussed for >3mins.? @ -No Was critical care preformed (if so, how long)? @ -No Were there social determinants of health that impacted care today? How? (Homelessness, low income, unemployed, alcoholism, drug addiction, transportation, low edu. Level, literacy, decrease access to med. care, fpc, rehab)? @ -No Was there de-escalation of care discussed even if they declined (Discuss DNR or withdrawal of care, Hospice)? DNR status @ -No What co-morbidities impacted this encounter? (DM, HTN, Smoking, COPD, CAD, Cancer, CVA, ARF, Chemo, Hep., AIDS, mental health diagnosis, sleep apnea, morbid obesity)? @ -Hyperlipidemia, anxiety Was patient admitted / discharged? Hospital course, mention meds given and route, prescriptions, significant lab abnormalities, going to OR and other pertinent info. @ -Upon arrival patient seen and evaluated in room 2. Thorough history and physical exam was performed. Patient arrives extremely tachycardic. She is placed on continuous pulse ox and cardiac monitoring. Laboratory studies are obtained and compared to yesterday's values. Chest x-ray was completed. Discussed the case with Dr. Jason. He does recommend CT which is completed and is suboptimal but does not demonstrate a PE. Patient will be admitted for cardiac consultation. Patient agreeable to the plan and was admitted in stable condition Undiagnosed new problem with uncertain prognosis? @ -Yes Drug Therapy requiring intensive monitoring for toxicity (Heparin, Nitro, Insulin, Cardizem)? @ -No Were any procedures done? @ -No Diagnosis/symptom? @ -Acute left-sided pleuritic chest pain, sinus tachycardia Acute, or Chronic, or Acute on Chronic? @ -Acute Uncomplicated (without systemic symptoms) or Complicated (systemic symptoms)? @ -Complicated Side effects of treatment? @ -No Exacerbation, Progression, or Severe Exacerbation? @ -No Poses a threat to life or bodily function? How? (Chest pain, [place], [place], pneumonia, PE, COPD, DKA, ARF, appy, cholecystitis, CVA, Diverticulitis, Homicidal, Suicidal, threat to staff... and all critical care pts) @ -Yes as patient does arrive with markedly elevated heart rate (Sofía Kumar) Disposition <Zina Salazar - Last Filed: 02/08/24 21:07> Is patient prescribed a controlled substance at d/c from ED?: No Time of Disposition: 23:16 Decision to Admit Reason: Admit from EC Decision Date: 02/08/24 Decision Time: 23:16 <Sofía Kumar - Last Filed: 02/09/24 10:44> Clinical Impression: Chest pain, Leukocytosis, Tachycardia Disposition: ADMITTED IP TO THIS HOSP Condition: Stable
[2024-02-08 22:02] LABS: Basophils # (A) 0.1 k/uL (0-0.2); Basophils % (A) 0 %; Eosinophils # (A) 0.2 k/uL (0-0.7); Eosinophils % (A) 1 %; HCT 36.3 % (34.0-46.0); HGB 11.9 gm/dL (11.4-16.0); Lymphocytes # (A) 3.4 k/uL (1.0-4.8); Lymphocytes % (A) 21 %; MCH 29.1 pg (25.0-35.0); MCHC 32.9 g/dL (31.0-37.0); MCV 88.5 fL (80.0-100.0); Mean Platelet Volume 6.5; Monocytes # (A) 0.8 k/uL (0-1.0); Monocytes % (A) 5 %; Neutrophils # (A) 11.4 k/uL (1.3-7.7); Neutrophils % (A) 71 %; Platelet Count 458 k/uL (150-450); RDW 13.6 % (11.5-15.5); WBC 16.1 k/uL (3.8-10.6)
[2024-02-08 22:12] LABS: ALT 24 U/L (4-34); AST 42 U/L (14-36); African American GFR (CKD) >90 (>60 ml/min/1.73 sqM); Alkaline Phosphatase 84 U/L (38-126); Anion Gap 8 mmol/L; Blood Urea Nitrogen 17 mg/dL (7-17); Calcium 9.4 mg/dL (8.4-10.2); Carbon Dioxide 21 mmol/L (22-30); Chloride 109 mmol/L (98-107); Glucose 104 mg/dL (74-99); Magnesium 1.9 mg/dL (1.6-2.3); Non-African American GFR(CKD) >90 (>60 ml/min/1.73 sqM); Sodium 138 mmol/L (137-145); Total Bilirubin 0.4 mg/dL (0.2-1.3); Total Protein 6.5 g/dL (6.3-8.2)
--- NOTE | 2024-02-08 22:29 | XR ---
EXAMINATION TYPE: XR chest 2V DATE OF EXAM: 02/08/2024 9:36 PM CLINICAL INDICATION:Female, 43 years old with history of Chest Pain; [facility] COMPARISON: 02/07/2024, 10/08/2017 TECHNIQUE: XR chest 2V. Frontal and lateral views of the chest.. FINDINGS: Lines/Tubes/Devices: EKG leads overlie the chest. No indwelling lines are seen. Heart/mediastinum: Heart size is normal. Mediastinum appears normal. Pulmonary vascularity: Not increased, Lungs/Pleura: There is no evidence of pleural effusion, focal consolidation, or pneumothorax. Similar-appearing mild interstitial coarsening, likely chronic changes with mild superimposed edema o r pneumonitis possible. Musculoskeletal: No acute osseous abnormality demonstrated in the limits of the exam. Other findings: None. IMPRESSION: No acute findings, or significant interval change.
[2024-02-08 22:57] LABS: INR 0.9 (<1.2); Partial Thromboplastin Time 23.8 sec (22.0-30.0); Prothrombin Time 10.1 sec (10.0-12.5)
[2024-02-08] MEDS ORDERED: NALOXONE 0.4 MG/ML 1 ML VIAL IV PRN (23:17)
[2024-02-08] MEDS ORDERED: NON FORMULARY DRUG (Ubidecarenone [Coenzyme Q10] 50 MG Capsule) PO SCH (23:30)
--- NOTE | 2024-02-08 23:36 | CT ---
EXAMINATION TYPE: CT chest angio for PE DATE OF EXAM: 02/08/2024 COMPARISON: NONE HISTORY: pt seen yesterday for same and left. cp that feels like squeezing. h/o breast CA w/ bilat ma stectomy. CT DLP: 370.9 mGycm. Automated Exposure Control for Dose Reduction was Utilized. CONTRAST: CTA scan of the thorax is performed with IV Contrast, patient injected with 100 mL of Isovue 370, pul monary embolism protocol. MIP Images are created on CT scanner and reviewed. FINDINGS: LUNGS: The lungs are grossly clear, there is no concerning parenchymal mass or nodule identified. T here is no pleural effusion or pneumothorax seen. The tracheobronchial tree is patent. MEDIASTINUM: Suboptimal study without CT evidence for acute pulmonary embolism. Enhancement of the ao rta without aneurysm or dissection. There are no greater than 1 cm hilar or mediastinal lymph nodes. No cardiomegaly or pericardial effusion is seen. OTHER: Diverticula in the transverse colon are seen. Bilateral mastectomy changes are noted. IMPRESSION: Suboptimal study without CT evidence for acute pulmonary embolism. No suspicious acute pu lmonary process.
[2024-02-09] MEDS: LORazepam 2 MG/ML INJ IV STA (00:03)
[2024-02-09] MEDS: DESVENLAFAXINE SUCCINATE 50 MG TAB.ER.24H PO SCH (00:05)
[2024-02-09] MEDS: CALCIUM CARBONATE 500 MG CHEWABLE PO SCH (00:05)
[2024-02-09] MEDS: ATORVASTATIN 20 MG TAB PO SCH (00:05)
[2024-02-09] MEDS: MULTIVITAMINS, THERA 1 EACH TAB PO SCH (00:06)
[2024-02-09] MEDS: FERROUS SULFATE 325 MG TAB PO SCH (00:06)
[2024-02-09 05:40] LABS: Basophils # (A) 0.1 k/uL (0-0.2); Basophils % (A) 0 %; Eosinophils # (A) 0.3 k/uL (0-0.7); Eosinophils % (A) 2 %; HCT 37.1 % (34.0-46.0); HGB 12.4 gm/dL (11.4-16.0); Lymphocytes # (A) 3.3 k/uL (1.0-4.8); Lymphocytes % (A) 23 %; MCH 29.9 pg (25.0-35.0); MCHC 33.4 g/dL (31.0-37.0); MCV 89.4 fL (80.0-100.0); Mean Platelet Volume 6.7; Monocytes # (A) 0.8 k/uL (0-1.0); Monocytes % (A) 6 %; Neutrophils # (A) 9.7 k/uL (1.3-7.7); Neutrophils % (A) 68 %; Platelet Count 440 k/uL (150-450); RBC 4.14 m/uL (3.80-5.40); RDW 13.7 % (11.5-15.5); WBC 14.3 k/uL (3.8-10.6)
[2024-02-09 05:48] LABS: African American GFR (CKD) >90 (>60 ml/min/1.73 sqM); Anion Gap 6 mmol/L; Blood Urea Nitrogen 16 mg/dL (7-17); Calcium 9.5 mg/dL (8.4-10.2); Carbon Dioxide 23 mmol/L (22-30); Chloride 107 mmol/L (98-107); Glucose 90 mg/dL (74-99); Non-African American GFR(CKD) >90 (>60 ml/min/1.73 sqM); Potassium 4.3 mmol/L (3.5-5.1); Sodium 136 mmol/L (137-145)
[2024-02-09] MEDS: IBUPROFEN 200 MG TAB PO PRN (09:38)
[2024-02-09] MEDS ORDERED: hydrOXYzine pamoate 25 MG CAP PO PRN (11:25)
--- NOTE | 2024-02-09 11:28 | P.CRDCN ---
History of Present Illness Consult date: 02/09/24 History of present illness: HISTORY OF PRESENTING ILLNESS 43-year-old female with past medical history of breast cancer s/p bilateral mastectomy in August 2023. She denies any chemotherapy or radiation therapy This time she presents to the hospital because of substernal chest pressure which gets worse with moving. She is also feeling very apprehensive about it and gets diaphoresis. On exam she has pain on palpation in the left upper chest. Admission ECG shows sinus tachycardia no significant ST-T wave changes at rest REVIEW OF SYSTEMS 14 point review of system is negative except what is mentioned above in HPI. PHYSICAL EXAMINATION Vital signs reviewed. Head: Normocephalic. Eyes: Sclerae nonicteric. Neck: Brisk carotid upstroke, no jugular venous distention. Lungs: Clear to auscultation. Heart: Regular rate and rhythm, S1-S2, no S3, no murmur or rub. Abdomen: Soft nontender, positive bowel sounds. Extremities: No edema, intact distal pulses. Neuro: Alert, oritented, no focal deficits. Detailed neuro exam was not performed. ASSESSMENT Chest pain, reproducible with palpation. Most likely related to her most mastectomy inflammation and scar tissue. It appears most likely musculoskeletal in nature. Rule out of ACS already. Sinus tachycardia, likely physiological Breast cancer s/p bilateral mastectomy in August 2023 PLAN Educated patient that her chest pain is most likely related to her musculoskeletal system and is not likely heart. Patient reported that this pain was already there even when she did not have her mastectomy done. She is really apprehensive about her heart and would like to get it checked out. Obtain an echocardiogram Obtain Lexiscan nuclear stress test Patient cannot walk on treadmill. I offered her to perform this testing on outpatient basis but patient is really hypertensin and would like to stay in the hospital to get these done. Jose Matthew MD, FACC, RPVI Thank you for allowing [facility] to participate in this patient's care. Feel free to reach out in case of any followup questions. Past Medical History Past Medical History: Cancer, Hyperlipidemia, Hypertension Additional Past Medical History / Comment(s): IBS, high heart rate, high white blood cell count, diverticulitis, anxiety, depression, breast ca. History of Any Multi-Drug Resistant Organisms: None Reported Past Surgical History: Uterine Ablation Additional Past Surgical History / Comment(s): double mastectomy 08/2023 Past Anesthesia/Blood Transfusion Reactions: No Reported Reaction Past Psychological History: Anxiety, Depression Smoking Status: Former smoker Past Alcohol Use History: Occasional Additional Past Alcohol Use History / Comment(s): started smoking at age 19-1ppd Past Drug Use History: None Reported - Past Family History Sister(s) Family Medical History: Cancer Additional Family Medical History / Comment(s): breast CA Mother History Unknown: Yes Family Medical History: Cancer Additional Family Medical History / Comment(s): Breast Cancer Medications and Allergies Home Medications Medication Instructions Recorded Confirmed Type LORazepam [Ativan] 0.5 mg PO HS 10/08/17 02/09/24 History Aspirin [Children's Aspirin] 162 mg PO HS 06/10/23 02/09/24 History Atorvastatin [Lipitor] 20 mg PO HS 06/10/23 02/09/24 History Ferrous Sulfate [Iron (65 MG 650 mg PO HS 06/10/23 02/09/24 History Elemental)] Calcium Carbonate [Calcium] 600 mg PO HS 02/07/24 02/09/24 History Desvenlafaxine [Pristiq ER] 100 mg PO HS 02/07/24 02/09/24 History Ibuprofen [Motrin Ib] 400 mg PO Q8H PRN 02/07/24 02/09/24 History Multivit with Calcium,Iron,Min 1 tab PO HS 02/07/24 02/09/24 History [Women's Multivitamin] Ubidecarenone [Coenzyme Q10] 100 mg PO HS 02/07/24 02/09/24 History Allergies Allergy/AdvReac Type Severity Reaction Status Date / Time Sulfa (Sulfonamide Allergy Mild Itching Verified 02/09/24 11:16 Antibiotics) Physical Exam Vitals: Vital Signs Temp Pulse Pulse Resp BP BP Pulse Ox 02/09/24 08:00 97 16 02/09/24 07:00 98.3 F 97 16 124/89 97 02/09/24 06:45 99 18 136/94 98 02/08/24 22:00 108 H 106 H 18 148/85 97 02/08/24 20:57 97.9 F 115 H 20 138/82 99 Intake and Output 02/08/24 02/09/24 02/09/24 22:59 06:59 14:59 Intake Total 110 Balance 110 Intake: Oral 110 Other: Voiding Method Toilet # Voids 1 Weight 83.915 kg 83.915 kg Results 02/09/24 05:21 02/09/24 05:21 Cardiac Enzymes 02/08/24 02/08/24 02/09/24 Range/Units 21:54 21:54 00:00 AST 42 H (14-36) U/L Troponin I <0.012 <0.012 (0.000-0.034) ng/mL 02/09/24 Range/Units 05:21 AST (14-36) U/L Troponin I <0.012 (0.000-0.034) ng/mL Coagulation 02/08/24 Range/Units 21:54 PT 10.1 (10.0-12.5) sec APTT 23.8 (22.0-30.0) sec CBC 02/08/24 02/09/24 Range/Units 21:54 05:21 WBC 16.1 H 14.3 H (3.8-10.6) k/uL RBC 4.10 4.14 (3.80-5.40) m/uL Hgb 11.9 12.4 (11.4-16.0) gm/dL Hct 36.3 37.1 (34.0-46.0) % Plt Count 458 H 440 (150-450) k/uL Comprehensive Metabolic Panel 02/08/24 02/09/24 Range/Units 21:54 05:21 Sodium 138 136 L (137-145) mmol/L Potassium 4.0 4.3 (3.5-5.1) mmol/L Chloride 109 H 107 (98-107) mmol/L Carbon Dioxide 21 L 23 (22-30) mmol/L BUN 17 16 (7-17) mg/dL Creatinine 0.75 0.72 (0.52-1.04) mg/dL Glucose 104 H 90 (74-99) mg/dL Calcium 9.4 9.5 (8.4-10.2) mg/dL AST 42 H (14-36) U/L ALT 24 (4-34) U/L Alkaline Phosphatase 84 (38-126) U/L Total Protein 6.5 (6.3-8.2) g/dL Albumin 4.0 (3.5-5.0) g/dL Current Medications Generic Name Dose Route Start Last Admin Trade Name Freq PRN Reason Stop Dose Admin Aminophylline 100 mg 02/10/24 06:00 Aminophylline 500 Mg/20 Ml Vial IV 02/10/24 23:00 ONCE PRN Patient Response Atorvastatin Calcium 20 mg 02/08/24 23:30 02/09/24 00:05 Atorvastatin 20 Mg Tab PO 20 mg HS DAVID Administration Caffeine Citrate 60 mg 02/10/24 06:00 Caffeine Citrate 60 Mg/3 Ml Vial IV 02/10/24 23:00 ONCE PRN Patient Response Calcium Carbonate/Glycine 500 mg 02/08/24 23:30 02/09/24 00:05 Calcium Carbonate 500 Mg Chewable PO 500 mg HS DAVID Administration Desvenlafaxine Succinate 100 mg 02/08/24 23:30 02/09/24 00:05 Desvenlafaxine Succinate 50 Mg Tab.Er.24h PO 100 mg HS DAVID Administration Ferrous Sulfate 650 mg 02/08/24 23:30 02/09/24 00:06 Ferrous Sulfate 325 Mg Tab PO 650 mg HS DAVID Administration Ibuprofen 400 mg 02/08/24 23:19 02/09/24 09:38 Ibuprofen 200 Mg Tab PO 400 mg Q8H PRN Administration Pain or Fever > 100.5 Lorazepam 0.5 mg 02/09/24 21:00 Lorazepam 0.5 Mg Tab PO HS DAVID Multivitamins 1 each 02/08/24 23:30 02/09/24 00:06 Multivitamins, Thera 1 Each Tab PO 1 each HS DAVID Administration Naloxone HCl 0.2 mg 02/08/24 23:17 Naloxone 0.4 Mg/Ml 1 Ml Vial IV Q2M PRN Opioid Reversal Regadenoson 0.4 mg 02/10/24 06:00 Regadenoson 0.4 Mg/5 Ml Syringe IV 02/10/24 23:00 ONCE PRN Per Protocol Intake and Output 02/08/24 02/09/24 02/09/24 22:59 06:59 14:59 Intake Total 110 Balance 110 Intake: Oral 110 Other: Voiding Method Toilet # Voids 1 Weight 83.915 kg 83.915 kg Patient Weight 02/10/24 06:59 Weight 83.915 kg 02/09/24 05:21 02/09/24 05:21
--- NOTE | 2024-02-09 11:59 | P.HPIM ---
History of Present Illness H&P Date: 02/09/24 Chief Complaint: Chest pain This is a 43-year-old female well-known to the practice. She has a history of anxiety along with sinus tachycardia breast cancer history with bilateral mastectomy and multiple medical problems. She has a long history of skill skeletal chest pain. She reports 2 days ago become much more severe, it was associate with motion and deep breaths, she was seen emergency room and had COVID testing which did not wish to stay at that point. She returned again last night to the emergency room and was admitted for workup. She has significant midsternal chest pain to palpation. Currently vitals are stable. Opponents x 3 are negative. She has a leukocytosis now at 14.3 with a left shift at 9.7. Absolute neutrophils. Electrolytes and normal. She does mention to staff that she is having some urine frequency and dysuria. Chest x-ray and CTA of the chest were both essentially normal. Review of Systems All systems: negative Past Medical History Past Medical History: Cancer, Hyperlipidemia, Hypertension Additional Past Medical History / Comment(s): IBS, high heart rate, high white blood cell count, diverticulitis, anxiety, depression, breast ca. History of Any Multi-Drug Resistant Organisms: None Reported Past Surgical History: Uterine Ablation Additional Past Surgical History / Comment(s): double mastectomy 08/2023 Past Anesthesia/Blood Transfusion Reactions: No Reported Reaction Past Psychological History: Anxiety, Depression Smoking Status: Former smoker Past Alcohol Use History: Occasional Additional Past Alcohol Use History / Comment(s): started smoking at age 19-1ppd Past Drug Use History: None Reported - Past Family History Sister(s) Family Medical History: Cancer Additional Family Medical History / Comment(s): breast CA Mother History Unknown: Yes Family Medical History: Cancer Additional Family Medical History / Comment(s): Breast Cancer Occupational Seizure History - Commerical Driving History Currently uses [employer] for employment (including self-employed).: No Medications and Allergies Home Medications Medication Instructions Recorded Confirmed Type LORazepam [Ativan] 0.5 mg PO HS 10/08/17 02/09/24 History Aspirin [Children's Aspirin] 162 mg PO HS 06/10/23 02/09/24 History Atorvastatin [Lipitor] 20 mg PO HS 06/10/23 02/09/24 History Ferrous Sulfate [Iron (65 MG 650 mg PO HS 06/10/23 02/09/24 History Elemental)] Calcium Carbonate [Calcium] 600 mg PO HS 02/07/24 02/09/24 History Desvenlafaxine [Pristiq ER] 100 mg PO HS 02/07/24 02/09/24 History Ibuprofen [Motrin Ib] 400 mg PO Q8H PRN 02/07/24 02/09/24 History Multivit with Calcium,Iron,Min 1 tab PO HS 02/07/24 02/09/24 History [Women's Multivitamin] Ubidecarenone [Coenzyme Q10] 100 mg PO HS 02/07/24 02/09/24 History Allergies Allergy/AdvReac Type Severity Reaction Status Date / Time Sulfa (Sulfonamide Allergy Mild Itching Verified 02/09/24 11:16 Antibiotics) Physical Exam Vitals: Vital Signs Temp Pulse Pulse Resp BP BP Pulse Ox 02/09/24 08:00 97 16 02/09/24 07:00 98.3 F 97 16 124/89 97 02/09/24 06:45 99 18 136/94 98 02/08/24 22:00 108 H 106 H 18 148/85 97 02/08/24 20:57 97.9 F 115 H 20 138/82 99 Intake and Output 02/08/24 02/09/24 02/09/24 22:59 06:59 14:59 Intake Total 110 Output Total 100 Balance 10 Intake: Oral 110 Output: Urine 100 Other: Voiding Method Toilet # Voids 1 2 Weight 83.915 kg 83.915 kg GENERAL: Anxious middle-age female in distress palpation of her chest or motion HEAD: Atraumatic, normocephalic. EYES: Pupils equal round and reactive to light, extraocular movements intact, sclera anicteric, conjunctiva are normal. ENT:nares patent, oropharynx clear without exudates. Moist mucous membranes. NECK: Normal range of motion, supple without lymphadenopathy or JVD, no thyromegaly LUNGS: Breath sounds clear to auscultation bilaterally and equal. No wheezes rales or rhonchi. HEART: Regular rate and rhythm without murmurs, rubs or gallops.S1S2 Normal ABDOMEN: Soft, nontender, normoactive bowel sounds. No guarding, no rebound. No masses appreciated. EXTREMITIES: Normal range of motion, no pitting or edema. No clubbing or cyanosis. NEUROLOGICAL: Cranial nerves II through XII grossly intact. Normal speech, normal gait. PSYCH: Anxious mood, normal affect. SKIN: Warm, Dry, normal turgor, no rashes or lesions noted. Results CBC & Chem 7: 02/09/24 05:21 02/09/24 05:21 Labs: Abnormal Lab Results - Last 24 Hours (Table) 02/08/24 02/08/24 02/09/24 Range/Units 21:54 21:54 05:21 WBC 16.1 H 14.3 H (3.8-10.6) k/uL Plt Count 458 H (150-450) k/uL Neutrophils # 11.4 H 9.7 H (1.3-7.7) k/uL Sodium (137-145) mmol/L Chloride 109 H (98-107) mmol/L Carbon Dioxide 21 L (22-30) mmol/L Glucose 104 H (74-99) mg/dL AST 42 H (14-36) U/L 02/09/24 Range/Units 05:21 WBC (3.8-10.6) k/uL Plt Count (150-450) k/uL Neutrophils # (1.3-7.7) k/uL Sodium 136 L (137-145) mmol/L Chloride (98-107) mmol/L Carbon Dioxide (22-30) mmol/L Glucose (74-99) mg/dL AST (14-36) U/L Chest x-ray: image reviewed CT scan - chest: report reviewed Thrombosis Risk Factor Assmnt - DVT/VTE Prophylaxis DVT/VTE Prophylaxis: Low risk, early ambulation encouraged - Choose All That Apply Any of the Below Risk Factors Present?: Yes Each Factor Represents 1 point: Age 41-60 years, Obesity (BMI >25) Other Risk Factors: No Thrombosis Risk Factor Assessment Total Risk Factor Score: 2 Thrombosis Risk Factor Assessment Level: Low Risk Assessment and Plan (1) Leukocytosis Current Visit: Yes Status: Chronic Code(s): D72.829 - ELEVATED WHITE BLOOD CELL COUNT, UNSPECIFIED SNOMED Code(s): 673357862 (2) Chest pain Current Visit: Yes Status: Acute Code(s): R07.9 - CHEST PAIN, UNSPECIFIED SNOMED Code(s): 88593185 (3) IBS (irritable bowel syndrome) Current Visit: Yes Status: Acute Code(s): K58.9 - IRRITABLE BOWEL SYNDROME WITHOUT DIARRHEA SNOMED Code(s): 51519939 (4) H/O malignant neoplasm of breast Current Visit: Yes Status: Acute Code(s): Z85.3 - PERSONAL HISTORY OF MALIGNANT NEOPLASM OF BREAST SNOMED Code(s): 026175712 (5) H/O mastectomy Current Visit: Yes Status: Acute Code(s): Z90.10 - ACQUIRED ABSENCE OF UNSPECIFIED BREAST AND NIPPLE SNOMED Code(s): 795598621 (6) Tachycardia Current Visit: Yes Status: Acute Code(s): R00.0 - TACHYCARDIA, UNSPECIFIED SNOMED Code(s): 5961720 (7) Mixed hyperlipidemia Current Visit: Yes Status: Acute Code(s): E78.2 - MIXED HYPERLIPIDEMIA SNOMED Code(s): 617746539 (8) SAFIA (generalized anxiety disorder) Current Visit: Yes Status: Acute Code(s): F41.1 - GENERALIZED ANXIETY DISORDER SNOMED Code(s): 68883868 Plan: I will repeat her COVID and influenza tests. Will empirically start her on ceftriaxone. Consult cardiology Repeat labs in a.m. Reevaluate in the next 24 hours by family medicine.
[2024-02-09 12:16] LABS: Appearance,Urine Clear (Clear); Bilirubin,Urine Negative (Negative); Blood,Urine Moderate (Negative); Color,Urine Colorless; Glucose,Urine (UA) Negative (Negative); Ketones,Urine Negative (Negative); Leukocyte Esterase,Urine Negative (Negative); Nitrite,Urine Negative (Negative); PH, Urine 5.5 (5.0-8.0); Protein,Urine Negative (Negative); RBC,Urine <1 /hpf (0-5); Specific Gravity,Urine 1.005 (1.001-1.035); Squamous Epithelial Cell,Urine 1 /hpf (0-4); Urobilinogen,Urine <2.0 mg/dL (<2.0); WBC,Urine 1 /hpf (0-5)
[2024-02-09] MEDS: LIDOCAINE 4% PATCH TOPICAL SCH (15:01)
[2024-02-09] MEDS: PANTOPRAZOLE 40 MG TABLET PO SCH (15:02)
[2024-02-09] MEDS: LORazepam 0.5 MG TAB PO SCH (21:45)
[2024-02-10] MEDS ORDERED: AMINOPHYLLINE 500 MG/20 ML VIAL IV PRN (06:00)
[2024-02-10] MEDS ORDERED: CAFFEINE CITRATE 60 MG/3 ML VIAL IV PRN (06:00)
[2024-02-10] MEDS ORDERED: REGADENOSON 0.4 MG/5 ML SYRINGE IV PRN (07:00)
[2024-02-10 07:24] VITALS: BP 106/70; PULSE 115; RESP 16; TEMP 98.9
[2024-02-10] MEDS ORDERED: SODIUM CHLORIDE 0.9% 50 ML ONE (12:29)
[2024-02-10] MEDS ORDERED: cefTRIAXone 1 GM VIAL ONE (12:29)
[2024-02-10] MEDS ORDERED: IBUPROFEN 200 MG TAB ONE (15:37)
[2024-02-28 15:40] LABS: Chol/HDL Ratio 3.95 Ratio; LDL Cholesterol,Calculated 75.4 mg/dL (0.0-131.0); NT-Pro-B-Type Natriuretic Pept <36 pg/mL (0-125)
--- NOTE | 2024-03-04 07:56 | NM ---
EXAMINATION TYPE: NM stress lexiscan cardiolite DATE OF EXAM: 02/24/2024 COMPARISON: NONE HISTORY: Acute chest pain and tachycardia TECHNIQUE: After the intravenous administration of 9.4 mCi Tc 99m Sestamibi - Cardiolite resting SPE CT images were acquired. At peak stress 23 mCi Tc 99m Sestamibi - Stress images were acquired. The patient was stressed with 0.4mg Lexiscan. FINDINGS: No fixed defects are evident No reversible stress defects on Spect images Wall motion is normal Ejection fraction is calculated to be 67 %. IMPRESSION: 1. No stress-induced ischemic changes.
--- NOTE | 2024-03-17 17:00 | CA ---
Exercise Nuclear Stress Test Report Name: Roseline Romero Exam Date: 02/10/2024 11:29 Exam Location: [place] Stress Ht (in): 64 Wt (lb): 185 BSA: 1.89 Ordering Phys: Jose Matthew MD Referring Phys: VIJAY Technologist: MICHAEL Age: 43 Gender: F : 1980 Procedure CPT: Indications: Reflex order-Stress test ICD-10 Codes: Patient History: Chest pain, shortness of breath and hyperlipidemia Medications: Meds past 24 hrs: Pretest Chest Pain: STRESS TEST Agustin Protocol Exercise Duration (min:sec): 06:[address] Depressions (mm): Angina Score: Glasgow Score: Resting HR (bpm): 101 Peak HR (bpm): 161 Resting BP (mmHg): 113 / 89 Peak BP (mmHg): 158 / 85 MPHR: 175 Target HR: 149 % MPHR: 92 METS: 7.1 Total Dose: Peak Dose: Atropine: Double Product: 55672 BP Response: Stress Termination: TARGET HR REACHED/MAX EXERTION Stress Symptoms: DIFFICULTY IN BREATHING Stress Summary: ECG ANALYSIS Resting ECG: Normal sinus rhythm normal axis normal intervals Stress ECG: Patient exercised on Agustin protocol for 6 minutes achieving 7 mets 83% of predicted maximal heart rate without chest pain or diagnostic ST segment depression CONCLUSIONS Average exercise tolerance Negative stress test by EKG criteria Cardiolite portion of the stress test will be reported separately Dr. Toño Tidwell MD (Electronically Signed) Final Date: 17 March 2024 16:59
== END 2024-02-10 18:08 | disposition home or self-care (01) ==
LOC: EC 20:51 → 6NMEDSUR 23:17
PROVIDERS: ADMIT Family Medicine; ATTEND Family Medicine
DX: R07.9 Chest pain, unspecified (principal); R00.0 Tachycardia, unspecified; D72.829 Elevated white blood cell count, unspecified; E78.2 Mixed hyperlipidemia; I10 Essential (primary) hypertension; F41.1 Generalized anxiety disorder; F32.A Depression, unspecified; K58.9 Irritable bowel syndrome, unspecified; Z11.52 Encounter for screening for COVID-19; Z85.3 Personal history of malignant neoplasm of breast; Z87.891 Personal history of nicotine dependence; Z90.13 Acquired absence of bilateral breasts and nipples; Z79.82 Long term (current) use of aspirin; Z79.899 Other long term (current) drug therapy; Z88.2 Allergy status to sulfonamides
CPT/HCPCS: 36415; 93005; 83880; 80061; 80053; 80048; 84443; 83735; 84484 ×2; 85025 ×2; 85610; 85730; 81001; 83036; 87636; 71046; 71275; J2060; J0696; Q9967; 78452; 93017; 93306; 96365; 96375; 99285

== ENCOUNTER 2024-03-18 18:15 | Emergency (ER) | payer OTHER ==
--- NOTE | 2024-03-18 18:31 | ED ---
Lower Extremity Injury HPI - General Source: patient, RN notes reviewed Mode of arrival: ambulatory Limitations: no limitations <Melissa Salazar - Last Filed: 03/18/24 18:30> - General Source: patient, RN notes reviewed <Gisell Witt - Last Filed: 03/18/24 22:24> - General Chief Complaint: Extremity Injury, Lower Stated Complaint: L knee pain Time Seen by Provider: 03/18/24 18:31 - History of Present Illness Initial Comments: Quick note: 43-year-old female presented to the ER with a chief complaint of left knee pain. Patient states 7 weeks ago she was riding a bike with no years. States since then she has been experiencing lateral left knee pain. She denies any weakness. She does state it is painful to walk and typically walks on her tiptoes. Denies any paresthesias. (Melissa Salazar) 43-year-old female presenting to the ER with chief complaint of left knee pain x 7 weeks. Patient states she has been riding her bike for the past 7 weeks, and has had increasing pain in the left lateral knee, worse with weightbearing. She is able to ambulate. Denies weakness, numbness, tingling. No specific trauma or injury. (Gisell Witt) - Related Data Home Medications Medication Instructions Recorded Confirmed LORazepam [Ativan] 0.5 mg PO HS 10/08/17 02/09/24 Aspirin [Children's Aspirin] 162 mg PO HS 06/10/23 02/09/24 Atorvastatin [Lipitor] 20 mg PO HS 06/10/23 02/09/24 Ferrous Sulfate [Iron (65 MG 650 mg PO HS 06/10/23 02/09/24 Elemental)] Calcium Carbonate [Calcium] 600 mg PO HS 02/07/24 02/09/24 Desvenlafaxine [Pristiq ER] 100 mg PO HS 02/07/24 02/09/24 Ibuprofen [Motrin Ib] 400 mg PO Q8H PRN 02/07/24 02/09/24 Multivit with Calcium,Iron,Min 1 tab PO HS 02/07/24 02/09/24 [Women's Multivitamin] Ubidecarenone [Coenzyme Q10] 100 mg PO HS 02/07/24 02/09/24 Allergies Allergy/AdvReac Type Severity Reaction Status Date / Time Sulfa (Sulfonamide Allergy Mild Itching Verified 03/18/24 18:22 Antibiotics) Review of Systems ROS Other: All systems not noted in ROS Statement are negative. <Melissa Salazar - Last Filed: 03/18/24 18:30> ROS Other: All systems not noted in ROS Statement are negative. <Gisell Witt - Last Filed: 03/18/24 22:24> ROS Statement: Those systems with pertinent positive or pertinent negative responses have been documented in the HPI. Past Medical History Past Medical History: Cancer, Hyperlipidemia, Hypertension Additional Past Medical History / Comment(s): IBS, high heart rate, high white blood cell count, diverticulitis, anxiety, depression, breast ca. History of Any Multi-Drug Resistant Organisms: None Reported Past Surgical History: Uterine Ablation Additional Past Surgical History / Comment(s): double mastectomy 08/2023 Past Anesthesia/Blood Transfusion Reactions: No Reported Reaction Past Psychological History: Anxiety, Depression Smoking Status: Former smoker Past Alcohol Use History: Occasional Past Drug Use History: None Reported - Past Family History Sister(s) Family Medical History: Cancer Additional Family Medical History / Comment(s): breast CA Mother History Unknown: Yes Family Medical History: Cancer Additional Family Medical History / Comment(s): Breast Cancer <Melissa Salazar - Last Filed: 03/18/24 18:30> General Exam Limitations: no limitations <Melissa Salazar - Last Filed: 03/18/24 18:30> General appearance: alert, in no apparent distress Left Upper Leg exam: Present: normal inspection, full ROM. Absent: tenderness, swelling Knee exam: Present: normal inspection, full ROM. Absent: tenderness, swelling, abrasion, laceration, deformity, erythema, effusion, pain/laxity with valgus, pain/laxity with varus (Negative Yamini's, negative anterior/posterior drawer sign. No popliteal tenderness) Lower Leg exam: Present: normal inspection, full ROM. Absent: tenderness, swelling Ankle exam: Present: normal inspection, full ROM. Absent: tenderness, swelling Foot/Toe exam: Present: normal inspection, full ROM. Absent: tenderness, swelling Neurovascular tendon exam: Present: no vascular compromise. Absent: pulse deficit, abnormal cap refill, sensory deficit <Gisell Witt - Last Filed: 03/18/24 22:24> - General Exam Comments Initial Comments: Visual Physical Exam Vital signs reviewed General: Well-appearing, nontoxic, no acute distress. Head: Normocephalic, atraumatic Eyes: PERRLA, EOMI ENT: Airway patent Chest: Nonlabored breathing Skin: No visual rash, normal skin tone Neuro: Alert and oriented 3 Musculoskeletal: No gross abnormalities (Melissa Salazar) Course Vital Signs 03/18/24 18:19 Temperature 98 F Pulse Rate 125 H Respiratory 20 Rate Blood Pressure 133/68 O2 Sat by Pulse 97 Oximetry Medical Decision Making <Melissa Salazar - Last Filed: 03/18/24 18:30> <Gisell Witt - Last Filed: 03/18/24 22:24> - Medical Decision Making I performed the quick note portion of this chart. Electronically signed by Melissa Salazar PA-C (Melissa Salazar) Was pt. sent in by a medical professional or institution (SHREYA Pino, BOTTLE CAPPING MACHINE OPERATOR, urgent care, hospital, or fdc...) When possible be specific @ -No Did you speak to anyone other than the patient for history (EMS, parent, family, police, friend...)? What history was obtained from this source @ -No Did you review nursing and triage notes (agree or disagree)? Why? @ -I reviewed and agree with nursing and triage notes Were old charts reviewed (outside hosp., previous admission, EMS record, old EKG, old radiological studies, urgent care reports/EKG's, fdc records)? Report findings @ -No old charts were reviewed Differential Diagnosis (chest pain, altered mental status, abdominal pain women, abdominal pain men, vaginal bleeding, weakness, fever, dyspnea, syncope, hea dache, dizziness, GI bleed, back pain, seizure, CVA, palpatations, mental health, musculoskeletal)? @ -Differential Musculoskeletal Muscular strain, contusion, ligament sprain, fracture, arthritis, septic arthritis, bursitis, cellulitis, muscle spasm, nerve compression, DVT, arterial occlusion, herpes zoster, electrolyte abnormality, tumor.... This is not meant to be in all inclusive list EKG interpreted by me (3pts min.). @ -None X-rays interpreted by me (1pt min.). @ -X-ray left knee is negative for acute process CT interpreted by me (1pt min.). @ -None done U/S interpreted by me (1pt. min.). @ -None done What testing was considered but not performed or refused? (CT, X-rays, U/S, labs)? Why? @ -None What meds were considered but not given or refused? Why? @ -None Did you discuss the management of the patient with other professionals (professionals i.e. DrJose, PA, BOTTLE CAPPING MACHINE OPERATOR, lab, RT, psych nurse, social security specialist, intrusion analyst, teacher, low altitude air defense officer, high risk case manager)? Give summary @ -No Was smoking cessation discussed for >3mins.? @ -No Was critical care preformed (if so, how long)? @ -No Were there social determinants of health that impacted care today? How? (Homelessness, low income, unemployed, alcoholism, drug addiction, transportation, low edu. Level, literacy, decrease access to med. care, detention, rehab)? @ -No Was there de-escalation of care discussed even if they declined (Discuss DNR or withdrawal of care, Hospice)? DNR status @ -No What co-morbidities impacted this encounter? (DM, HTN, Smoking, COPD, CAD, Cancer, CVA, ARF, Chemo, Hep., AIDS, mental health diagnosis, sleep apnea, mor bid obesity)? @ -None Was patient admitted / discharged? Hospital course, mention meds given and route, prescriptions, significant lab abnormalities, going to OR and other pertinent info. @ -Patient was discharged. This is a 43-year-old female presenting with left knee pain x 7 weeks. No specific trauma or injury. Able to ambulate. Neurovascularly intact. No sign of bacterial infection. No red flag symptoms. X-ray revealed no acute process. Discussed diagnosis of left knee sprain with patient. Patient provided with analgesics. Advised orthopedic follow-up. Supportive care and return precautions discussed. Case discussed with my ED attending Dr. Hackett. Patient discharged in stable condition. Undiagnosed new problem with uncertain prognosis? @ -No Drug Therapy requiring intensive monitoring for toxicity (Heparin, Nitro, Insulin, Cardizem)? @ -No Were any procedures done? @ -No Diagnosis/symptom? @ -Left knee sprain Acute, or Chronic, or Acute on Chronic? @ -Acute Uncomplicated (without systemic symptoms) or Complicated (systemic symptoms)? @ -Uncomplicated Side effects of treatment? @ -No Exacerbation, Progression, or Severe Exacerbation? @ -No Poses a threat to life or bodily function? How? (Chest pain, [place], [place], pneumonia, PE, COPD, DKA, ARF, appy, cholecystitis, CVA, Diverticulitis, Homicidal, Suicidal, threat to staff... and all critical care pts) @ -No (Gisell Witt) Disposition <Melissa Salazar - Last Filed: 03/18/24 18:30> Is patient prescribed a controlled substance at d/c from ED?: No Time of Disposition: 21:53 <Gisell Witt - Last Filed: 03/18/24 22:24> Clinical Impression: Left knee sprain Disposition: HOME SELF-CARE Condition: Stable Instructions (If sedation given, give patient instructions): Knee Sprain (ED) Additional Instructions: Take ibuprofen/Tylenol as needed for pain. Use ice, rest, and elevation. Follow-up with orthopedics as discussed. Please return to the Emergency Department if symptoms worsen or any other concerns. Referrals: Isidro Jason MD [Primary Care Provider] - 1-2 days Eric Hester MD [STAFF PHYSICIAN] - 1-2 days
--- NOTE | 2024-03-18 21:09 | XR ---
EXAMINATION TYPE: XR knee complete LT DATE OF EXAM: 03/18/2024 7:37 PM CLINICAL INDICATION: Female, 43 years old with history of pain; [facility] COMPARISON: None. TECHNIQUE: XR knee complete LT; examined in Frontal, lateral and oblique projections. FINDINGS: No evidence of any acute osseous pathology, soft tissue swelling, or joint effusion is no dhara. Minimal joint space narrowing osteophyte formation most pronounced at the patella. IMPRESSION: 1. No acute osseous pathology. 2. Minimal osteoarthritic changes.
[2024-03-18] MEDS: methylPREDNISolone SOD SUCCI 125 MG/2 ML VIAL IM ONE (21:42)
[2024-03-18] MEDS: KETOROLAC 15 MG/ML 1 ML VIAL IM STA (21:42)
[2024-03-18 22:26] VITALS: BP 100/68; PULSE 90; RESP 16; TEMP 97.9
== END 2024-03-18 22:26 | disposition home or self-care (01) ==
LOC: EC 18:15
CPT/HCPCS: 96372; 99283

== ENCOUNTER → 2024-10-28 | Outpatient (CLI) | payer OTHER ==
[2024-10-28 18:24] LABS: ALT 36 U/L (8-44); AST 26 U/L (13-35); Albumin 4.1 g/dL (3.8-4.9); Albumin/Globulin Ratio 1.71 Ratio (1.60-3.17); Alkaline Phosphatase 114 U/L (41-126); BUN/Creat Ratio 7.75 Ratio (12.00-20.00); Blood Urea Nitrogen 6.2 mg/dL (9.0-27.0); Calcium 9.9 mg/dL (8.7-10.3); Carbon Dioxide 22.6 mmol/L (21.6-31.8); Chloride 105 mmol/L (96-109); Chol/HDL Ratio 5.08 Ratio; Globulin 2.4 g/dL (1.6-3.3); Glucose 124 mg/dL (70-110); LDL Cholesterol,Calculated 84.1 mg/dL (0.0-131.0); Potassium 4.6 mmol/L (3.5-5.5); Sodium 140 mmol/L (135-145); Total Bilirubin <0.2 mg/dL (0.3-1.2); Total Protein 6.5 g/dL (6.2-8.2)
== END | disposition home or self-care (01) ==
LOC: LABWHC1 12:54
PROVIDERS: ATTEND Family Medicine
DX: E78.2 Mixed hyperlipidemia (principal)
CPT/HCPCS: 36415; 80053; 80061

== ENCOUNTER → 2024-12-24 | Outpatient (CLI) | payer OTHER ==
--- NOTE | 2024-12-24 11:32 | XR ---
EXAMINATION TYPE: XR lumbosacral spine min 4V DATE OF EXAM: 12/24/2024 11:26 AM COMPARISON: 06/23/2015 CLINICAL INDICATION: Female, 44 years old with history of M54.50 low back pain, pain TECHNIQUE: 5 view(s) obtained. FINDINGS: There are 5 lumbar-type vertebral bodies. Pedicles are intact. Disc heights are preserved. Vertebral body heights are preserved. No spondylolysis evidence. No spondylolisthesis. Facets appear normal. Fo llow-up MRI can be performed as clinically indicated. IMPRESSION: 1. Unremarkable 5 view lumbar spine [facility] Sen, , 12/24/2024 11:30 AM
== END | disposition home or self-care (01) ==
LOC: RADXRMAIN 10:16
PROVIDERS: ATTEND Family Medicine
DX: M54.50 Low back pain, unspecified (principal); G89.29 Other chronic pain; Z79.899 Other long term (current) drug therapy
CPT/HCPCS: 72110

== ENCOUNTER → 2025-01-15 | Day surgery (SDC) | payer OTHER ==
[2025-01-13 14:30] VITALS: BMI 31.7
[~2025-01-15] MED LIST changes: -LACTATED RINGERS 1,000 ML IV SCH; -LIDOCAINE 1% (10MG/ML) FOR IV START INTRADERMA PRN; -MIDAZOLAM 2 MG/2 ML VIAL ONE
[2025-01-15 07:42] VITALS: RESP 16; TEMP 97
[2025-01-15] MEDS: LACTATED RINGERS 1,000 ML IV SCH (07:45)
[2025-01-15] MEDS: LIDOCAINE 1% (10MG/ML) FOR IV START INTRADERMA STA (07:45)
[2025-01-15] MEDS: IV FLUID CONTINUATION 1,000 ML IV ONE (07:46)
--- NOTE | 2025-01-15 08:34 | P.PCN ---
Date of Procedure: 01/15/25 Procedure(s) Performed: Brief history: Patient is a pleasant 44-year-old white female scheduled for an elective upper endoscopy as well as colonoscopy as a part of evaluation of abdominal pain, GERD and chronic diarrhea of several months duration. She has bowel segments in 5 to 50 mm loose watery consistency but no blood or mucus in the stool Procedure performed: Esophagogastroduodenoscopy with biopsy Colonoscopy with biopsy Preoperative diagnosis: GERD Chronic diarrhea Anesthesia: MAC Procedure: After informed consent was obtained from the patient was brought into the endoscopy unit and IV sedation was administered by anesthesia under continuous monitoring. Initially upper endoscopy was done. The Olympus GF 160 video endoscope was inserted inserted into the mouth and esophagus intubated without any difficulty and was gradually advanced into the stomach and duodenum and carefully examined. The bulb and second part of the duodenum appeared normal. Biopsies were done from the duodenum rule out celiac disease the scope was then withdrawn into the stomach adequately insufflated with air and upon careful examination the antrum and mild gastritis and biopsies were done from this area. Mucosa of the body, cardia and fundus appeared normal. The scope was then withdrawn into the esophagus. Small hiatal hernia noted. The GE junction was located at 40 cm to the incisors. It appeared regular superficial erosions consistent with LA grade B reflux esophagitis.. Rest of the esophagus appeared normal. Patient tolerated the procedure well. At this time the patient continued to remain sedation. Initial digital rectal examination was normal. Olympus CF 160 video colonoscope was then inserted into the rectum and gradually advanced to the cecum without any difficulty. Careful examination was performed as the scope was gradually being withdrawn. The prep was excellent. The cecum, ascending colon, transverse colon, descending colon, sigmoid colon and rectum appeared normal. In the rectosigmoid colon there was a 4 mm polyp that was removed by cold biopsy. Scattered sigmoid diverticulosis seen. Random biopsies were done from the ascending and descending colon to rule out microscopic/collagenous colitis. Retroflexion was performed in the rectum and no lesions were noted. Patient tolerated the procedure well. Impression: 1. Upper endoscopy revealed many erosions in the distal esophagus consistent with LA grade B reflux esophagitis, small hiatal hernia and mild antral gastritis 2. Colonoscopy revealed a 4 mm rectosigmoid polyp status post cold biopsy and scattered sigmoid diverticulosis Recommendations: Findings of this examination were discussed with the patient as well as her family. She was advised to follow with the biopsy results. Follow-up in office in 2 weeks. If the biopsy reveals adenoma she can have repeat colonoscopy in 5 years.
[2025-01-15 09:04] VITALS: BP 129/61; PULSE 80
== END ==
LOC: ORWHC2ENDO 07:09
PROVIDERS: ATTEND Internal Medicine Gastroenterology
DX: K62.1 Rectal polyp (principal); K21.9 Gastro-esophageal reflux disease without esophagitis; K57.30 Diverticulosis of large intestine without perforation or abscess without bleeding; K44.9 Diaphragmatic hernia without obstruction or gangrene; K52.9 Noninfective gastroenteritis and colitis, unspecified; I10 Essential (primary) hypertension; E78.5 Hyperlipidemia, unspecified; J44.9 Chronic obstructive pulmonary disease, unspecified; F41.9 Anxiety disorder, unspecified; F17.210 Nicotine dependence, cigarettes, uncomplicated; F32.A Depression, unspecified; Z79.82 Long term (current) use of aspirin; Z79.899 Other long term (current) drug therapy; Z88.2 Allergy status to sulfonamides
CPT/HCPCS: 81025; 88305; 45380; 43239; J2704